=== PATIENT | female | born 1955 | race Caucasian/White ===

== ENCOUNTER 2018-10-02 12:23 | Emergency (ER) | payer BC ==
[~2018-10-02] VITALS: Ht 152.4 cm; Wt 133.8 kg
[~2018-10-02 12:23] MED LIST: CYAN10005 PO; DAPA10TA PO; DENO120V SQ; FURO-69 PO; GLIM2TAB2 PO; HYDR-2761 PO; IBUP200T77 PO; PAZO200T PO; POTA20TA4 PO; SIMV20TA3 PO; VALS1TAB22 PO
[2018-10-02 13:09] LABS: BASO % 1 % (0-3); EOS # 0.1 x10^3/uL (0.0-0.7); EOS % 1 % (0-3); HEMATOCRIT 37.2 % (36.0-47.0); HEMOGLOBIN 12.9 g/dL (12.0-15.5); LYMPH # 0.9 x10^3/uL (1.0-4.8); LYMPH % 22 % (24-48); MEAN CORPUSCULAR HEMOGLOBIN 29 pg (25-35); MEAN CORPUSCULAR HGB CONC 35 g/dL (31-37); MEAN CORPUSCULAR VOLUME 85 fL (79-100); MONO # 0.3 x10^3/uL (0.0-1.1); MONO % 7 % (0-9); NEUT % 69 % (31-73); PLATELET COUNT 181 x10^3/uL (140-400); RED BLOOD COUNT 4.39 x10^6/uL (3.50-5.40); RED CELL DISTRIBUTION WIDTH 18.6 % (11.5-14.5); WHITE BLOOD COUNT 4.3 x10^3/uL (4.0-11.0)
[2018-10-02 13:21] LABS: CALCIUM 10.1 mg/dL (8.5-10.1); GFR 55.8; POTASSIUM 3.3 mmol/L (3.5-5.1)
[2018-10-02 13:26] LABS: ALBUMIN 3.2 g/dL (3.4-5.0); DIRECT BILIRUBIN 0.1 mg/dL (0.0-0.2); TOTAL BILIRUBIN 0.6 mg/dL (0.2-1.0); TOTAL PROTEIN 7.4 g/dL (6.4-8.2)
[2018-10-02] MEDS ORDERED: IPRATRPIUM/ALBUTEROL 0.5/2.5MG 3 ML NEBU. NEB ONE (13:30)
[2018-10-02] MEDS ORDERED: IOHEXOL 300 MG/ML 100ML VIAL. IV ONE (13:45)
[2018-10-02] MEDS ORDERED: CONTRAST GIVEN. MC PRN (13:45)
--- NOTE | 2018-10-02 13:58 | RAD ---
Examination: CHEST AP ONLY History: SOA,WEAKNESS X1 WEEK, Comparison/Correlation: None Findings: Portable upright frontal view chest was obtained. Heart size is borderline but this is probably technique related. No infiltrate, pleural effusion, significant pulmonary vasculature congestion, or pneumothorax. Impression: No focal infiltrate. Electronically signed by: Amanuel Rene MD (10/02/2018 1:18 PM) [id number]
[2018-10-02] MEDS ORDERED: fentaNYL PF VIAL 100 MCG/2 ML VIAL IV PRN (14:15)
--- NOTE | 2018-10-02 14:41 | EKG ---
[facility] [address] [place] [address] Test Date: 2018-10-02 Test Time: 14:11:40 Pat Name: DRU GONZALEZ Department: Room: Gender: F Director Law Enforcement: : 1955 Requested By: COLLEEN FLOYD Order Number: [id number] Reading MD: Crow Burton Measurements Intervals [place] Rate: 69 P: 51 [place]: 190 QRS: -13 QRSD: 98 T: 18 QT: 400 QTc: 435 Interpretive Statements SINUS RHYTHM LEFTWARD AXIS NONSPECIFIC ST-T WAVE CHANGES Electronically Signed On 10-07-2018 15:19:11 FIREFIGHTER TYPE ONE by Crow Burton
--- NOTE | 2018-10-02 15:34 | PHYS DOC ---
Past Medical History Past Medical History: Other Additional Past Medical Histor: kidney ca with mets to bone Past Surgical History: Other Additional Past Surgical Histo: lt knee, rt shoulder Alcohol Use: None Drug Use: None Adult General Chief Complaint Chief Complaint: SHORTNESS OF BREATH HPI HPI 63-year-old female presenting to the emergency department today with worsening shortness of breath over the past 2 weeks. It is worse with exertion. Improved with rest. She denies any chest pain or abdominal pain. onset today. location lung. duration intermittent. Past medical history: Diabetes hypertension hyperlipidemia history of TIA and history of arthritis. History of renal cancer stage IV with metastasis to the bones. Surgical history history of appendectomy and tonsillectomy. Social history denies smoking drinking or IV drug use. Review of systems is negative for fevers chills headache neck stiffness confusion cyanosis or lethargy. She denies leg swelling. All other review of systems is negative unless otherwise noted in history of present illness. ED course: 63-year-old female presenting with worsening shortness of breath. Vitals, afebrile with normal heart rate. Blood pressure within normal limits. On examination the lungs are clear bilaterally. Work of breathing is within normal limits. Abdomen is soft and nontender. EKG obtained and reviewed by myself shows sinus rhythm with a regular rate. ST segments congruent. Not suggestive of ACS. CBC unremarkable. Chemistry panel shows mildly low potassium. LFTs are mildly elevated. Troponin negative. Lipase within normal limits. Chest x-ray is negative for acute pathology. CT angios negative for pulmonary embolism. Incidental finding with follow-up ultrasound below. Patient will follow up with PCP for this.The patient has been examined and was not found to have an emergency medical condition. The patient was then discharged home in stable condition to follow up with their primary care physician over the next 1-2 days. They were to return if their symptoms worsened or if they were concerned for any reason. They were also instructed to return to the emergency department if they were unable to get the recommended and appropriate follow-up. [id number] discharge instructions and return precautions were given. Patient's questions were answered to their satisfaction. Patient is comfortable with plan. 3. Prominent appearing right lobe of thyroid gland with probable hypodense nodule measuring 2.5 cm. Follow-up nonemergent ultrasound thyroid can be considered. Review of Systems Review of Systems SEE ABOVE. Current Medications Current Medications Current Medications Medications (Trade) Dose Ordered Sig/Jesús Start Time Stop Time Status Last Admin Dose Admin Albuterol/ Ipratropium (Duoneb) 3 ml 1X ONCE 10/02/18 13:30 10/02/18 13:31 DC 10/02/18 13:25 3 ML Fentanyl Citrate (Fentanyl 2ml Vial) 25 mcg 1X PRN PRN 10/02/18 14:15 10/02/18 14:33 25 MCG Info (CONTRAST GIVEN -- Rx MONITORING) 1 each PRN DAILY PRN 10/02/18 13:45 10/04/18 13:44 Iohexol (Omnipaque 300 Mg/ml) 90 ml 1X ONCE 10/02/18 13:45 10/02/18 13:46 DC 10/02/18 13:54 90 ML Allergies Allergies Allergies Coded Allergies Type Severity Reaction Last Updated Verified No Known Drug Allergies 10/18/13 No Physical Exam Physical Exam SEE ABOVE Constitutional: Well developed, well nourished, no acute distress, non-toxic appearance. [] HENT: Normocephalic, atraumatic, bilateral external ears normal, oropharynx moist, no oral exudates, nose normal. [] Eyes: PERRLA, EOMI, conjunctiva normal, no discharge. [] Neck: Normal range of motion, no tenderness, supple, no stridor. [] Cardiovascular:Heart rate regular rhythm, no murmur [] Lungs & Thorax: Bilateral breath sounds clear to auscultation [] Abdomen: Bowel sounds normal, soft, no tenderness, no masses, no pulsatile masses. [] Skin: Warm, dry, no erythema, no rash. [] Back: No tenderness, no CVA tenderness. [] Extremities: No tenderness, no cyanosis, no clubbing, ROM intact, no edema. [] Neurologic: Alert and oriented X 3, normal motor function, normal sensory function, no focal deficits noted. [] Psychologic: Affect normal, judgement normal, mood normal. [] Current Patient Data Vital Signs Vital Signs Date Time Temp Pulse Resp B/P (MAP) Pulse Ox O2 Delivery O2 Flow Rate FiO2 10/02/18 14:33 65 18 133/69 (90) 99 Room Air 10/02/18 12:45 97.0 97.0 Lab Values Laboratory Tests Test 10/02/18 12:58 White Blood Count 4.3 x10^3/uL (4.0-11.0) Red Blood Count 4.39 x10^6/uL (3.50-5.40) Hemoglobin 12.9 g/dL (12.0-15.5) Hematocrit 37.2 % (36.0-47.0) Mean Corpuscular Volume 85 fL (79-100) Mean Corpuscular Hemoglobin 29 pg (25-35) Mean Corpuscular Hemoglobin Concent 35 g/dL (31-37) Red Cell Distribution Width 18.6 % (11.5-14.5) H Platelet Count 181 x10^3/uL (140-400) Neutrophils (%) (Auto) 69 % (31-73) Lymphocytes (%) (Auto) 22 % (24-48) L Monocytes (%) (Auto) 7 % (0-9) Eosinophils (%) (Auto) 1 % (0-3) Basophils (%) (Auto) 1 % (0-3) Neutrophils # (Auto) 3.0 x10^3uL (1.8-7.7) Lymphocytes # (Auto) 0.9 x10^3/uL (1.0-4.8) L Monocytes # (Auto) 0.3 x10^3/uL (0.0-1.1) Eosinophils # (Auto) 0.1 x10^3/uL (0.0-0.7) Basophils # (Auto) 0.0 x10^3/uL (0.0-0.2) Sodium Level 142 mmol/L (136-145) Potassium Level 3.3 mmol/L (3.5-5.1) L Chloride Level 102 mmol/L (98-107) Carbon Dioxide Level 26 mmol/L (21-32) Anion Gap 14 (6-14) Blood Urea Nitrogen 29 mg/dL (7-20) H Creatinine 1.0 mg/dL (0.6-1.0) Estimated GFR (Cockcroft-Gault) 55.8 Glucose Level 107 mg/dL (70-99) H Calcium Level 10.1 mg/dL (8.5-10.1) Total Bilirubin 0.6 mg/dL (0.2-1.0) Direct Bilirubin 0.1 mg/dL (0.0-0.2) Aspartate Amino Transferase (AST) 156 U/L (15-37) H Alanine Aminotransferase (ALT) 299 U/L (14-59) H Alkaline Phosphatase 119 U/L (46-116) H Troponin I Quantitative < 0.017 ng/mL (0.000-0.055) GB-Kfp-[id number]-Type Natriuretic Peptide 174 pg/mL (0-124) H Total Protein 7.4 g/dL (6.4-8.2) Albumin 3.2 g/dL (3.4-5.0) L Lipase 223 U/L (73-393) Laboratory Tests 10/02/18 12:58 Laboratory Tests 10/02/18 12:58 EKG EKG [] Radiology/Procedures Radiology/Procedures [] Course & Med Decision Making Course & Med Decision Making Pertinent Labs and Imaging studies reviewed. (See chart for details) [] Dragon Disclaimer Dragon Disclaimer This electronic medical record was generated, in whole or in part, using a voice recognition dictation system. Departure Departure Impression: Primary Impression: Shortness of breath Disposition: 01 HOME, SELF-CARE Condition: STABLE Referrals: JENNIFFER BARBER DO (PCP) Patient Instructions: Shortness of Breath, Cwqw-[id number] Additional Instructions: Thank you for allowing us to participate in your care today. Return to the emergency department you have any new or worsening symptoms, or if you are concerned for any reason. Return to emergency department if you have any new or concerning symptoms including but not limited to fever, chills, nausea, vomiting, intractable pain, any new rashes, chest pain, shortness of air , uncontrolled bleeding, difficulty breathing, and/or vision loss. Follow up with your primary care physician within 1-2 days. Call your Primary Doctor tomorrow and inform them of your visit today. If you do not have a primary care provider we are happy to provide you with a list of our primary care providers contact information. This condition should be evaluated by your primary care physician and any recommended consulting services for continued management within 2 days after discharge. If at any time, you are having difficulty getting into your primary care doctor or a specialist, return to the emergency department. COLLEEN FLOYD MD Oct 02, 2018 15:34
--- NOTE | 2018-10-02 16:12 | RAD ---
Examination: CT angiography chest HISTORY: History of shortness of breath, stage IV renal cancer COMPARISON: CT chest from 06/04/2018 TECHNIQUE: Axial CT angiography images chest were performed with IV contrast. Coronal and sagittal 3-D MIP reformats are performed Exposure: One or more of the following individualized dose reduction techniques were utilized for this examination: 1. Automated exposure control 2. Adjustment of the mA and/or kV according to patient size 3. Use of iterative reconstruction technique FINDINGS: Prominent appearing right lobe of thyroid gland with probable hypodense nodule measuring 2.5 cm. The central airways are patent The heart size grossly appears unremarkable There is no evidence of filling defect identified in the main pulmonary arterial trunk and right and pulmonary duct is in the visualized lobar, segmental branches of the pulmonary arteries. The caliber of the aorta grossly appears unremarkable. Calcified granulomas identified in the left apical lung. Linear atelectasis left lung base. No evidence of pleural effusion or pneumothorax. The partially visualized liver, appears unremarkable. Calcified granulomas identified in the spleen. Moderate degenerative changes thoracic spine. IMPRESSION: 1. No evidence of pulmonary embolism. 2. Minimal atelectasis left lung base. 3. Prominent appearing right lobe of thyroid gland with probable hypodense nodule measuring 2.5 cm. Follow-up nonemergent ultrasound thyroid can be considered. Electronically signed by: José Luis Stout MD (10/02/2018 2:10 PM) [place] [id number]
[2018-10-02 16:54] VITALS: BP 139/75
== END 2018-10-02 17:14 | disposition home or self-care (01) ==
LOC: ER 12:23
DX: R06.02 Shortness of breath (principal); E11.9 Type 2 diabetes mellitus without complications; I10 Essential (primary) hypertension; E78.5 Hyperlipidemia, unspecified; M19.90 Unspecified osteoarthritis, unspecified site; Z86.73 Personal history of transient ischemic attack (TIA), and cerebral infarction without residual deficits
CPT/HCPCS: 36415; 71045; 71275; 80048; 80076; 83690; 83880; 84484; 85025; 93005; 94640; 96374; 99284; J3010; J7620; Q9967

== ENCOUNTER 2018-12-24 16:52 | Inpatient (IN) | payer BC ==
[~2018-12-24] VITALS: Ht 152.4 cm; Wt 128.2 kg
[2018-12-24 09:30] VITALS: BP 132/75
[~2018-12-24 16:52] MED LIST changes: +ONDA8TAB9 PO
--- NOTE | 2018-12-24 17:56 | PHYS DOC ---
Past Medical History Past Medical History: Other Additional Past Medical Histor: kidney ca with mets to bone Past Surgical History: Other Additional Past Surgical Histo: lt knee, rt shoulder Alcohol Use: None Drug Use: None Adult General Chief Complaint Chief Complaint: HYPOGLYCEMIA HPI HPI This is a pleasant 63-year-old female presenting to the emergency department after being found down by family. She was found to be hypoglycemic with a blood sugar of 16 in the field. IV was started by paramedics and they gave an amp of D50 in the field which improved her mentation. She is now alert and oriented arriving by EMS. She does not take insulin but does take glipizide and Farxiga. Currently the patient reports feeling cold but otherwise is asymptomatic. This review of systems is negative for chest pain shortness of breath abdominal pain nausea vomiting. All other review of systems is negative unless otherwise noted in history of present illness. ED course: 63-year-old female presented to the emergency department with a hypoglycemic episode which was ameliorated by EMS giving IV dextrose. On arrival she is asymptomatic. We will feed the patient here in the emergency department and dropped blood work. We will plan to admit the patient to the hospital. The patient was signed out at [address] Briggs with plans to follow- up on blood work and reexamine the patient with plan of likely admission. Review of Systems Review of Systems SEE ABOVE. Allergies Allergies Allergies Coded Allergies Type Severity Reaction Last Updated Verified No Known Drug Allergies 10/18/13 No Physical Exam Physical Exam SEE ABOVE Constitutional: Well developed, well nourished, no acute distress, non-toxic appearance. [] HENT: Normocephalic, atraumatic, bilateral external ears normal, oropharynx moist, no oral exudates, nose normal. [] Eyes: PERRLA, EOMI, conjunctiva normal, no discharge. [] Neck: Normal range of motion, no tenderness, supple, no stridor. [] Cardiovascular:Heart rate regular rhythm, no murmur [] Lungs & Thorax: Bilateral breath sounds clear to auscultation [] Abdomen: Bowel sounds normal, soft, no tenderness, no masses, no pulsatile masses. [] Skin: Warm, dry, no erythema, no rash. [] Back: No tenderness, no CVA tenderness. [] Extremities: No tenderness, no cyanosis, no clubbing, ROM intact, no edema. [] Neurologic: Mental status: Awake oriented and alert x3 Cranial nerves: Extraocular movements intact, eyebrows nathaly bilaterally, smile symmetric, uvula elevation nl, shoulder shrug intact bilaterally, tongue protrusion normal DTRs: 2+ Sensation: equal and normal in all extremities Strength: 5/5 in upper and lower extremities bilaterally Psychologic: Affect normal, judgement normal, mood normal. [] Current Patient Data Lab Values Laboratory Tests Test 12/24/18 17:02 Glucose (Fingerstick) 63 mg/dL (70-99) L EKG EKG [] Radiology/Procedures Radiology/Procedures [] Course & Med Decision Making Course & Med Decision Making Pertinent Labs and Imaging studies reviewed. (See chart for details) [] Dragon Disclaimer Dragon Disclaimer This electronic medical record was generated, in whole or in part, using a voice recognition dictation system. Departure Departure Referrals: JENNIFFER BARBER DO (PCP) COLLEEN FLOYD MD Dec 24, 2018 17:56
[2018-12-24 18:08] LABS: BASO % 0 % (0-3); EOS % 0 % (0-3); HEMATOCRIT 37.1 % (36.0-47.0); HEMOGLOBIN 12.2 g/dL (12.0-15.5); LYMPH # 0.3 x10^3/uL (1.0-4.8); LYMPH % 4 % (24-48); MEAN CORPUSCULAR HEMOGLOBIN 32 pg (25-35); MEAN CORPUSCULAR HGB CONC 33 g/dL (31-37); MEAN CORPUSCULAR VOLUME 97 fL (79-100); MONO # 0.3 x10^3/uL (0.0-1.1); MONO % 5 % (0-9); NEUT # 5.3 x10^3uL (1.8-7.7); NEUT % 90 % (31-73); PLATELET COUNT 176 x10^3/uL (140-400); RED BLOOD COUNT 3.82 x10^6/uL (3.50-5.40); RED CELL DISTRIBUTION WIDTH 19.4 % (11.5-14.5); WHITE BLOOD COUNT 5.9 x10^3/uL (4.0-11.0)
[2018-12-24 18:20] LABS: CALCIUM 9.3 mg/dL (8.5-10.1); CREATININE 0.7 mg/dL (0.6-1.0); GFR 84.2; POTASSIUM 3.4 mmol/L (3.5-5.1)
[2018-12-24 18:21] LABS: ALBUMIN 3.3 g/dL (3.4-5.0); DIRECT BILIRUBIN 0.2 mg/dL (0.0-0.2); TOTAL BILIRUBIN 0.6 mg/dL (0.2-1.0); TOTAL PROTEIN 7.4 g/dL (6.4-8.2)
[2018-12-24 18:26] LABS: BILIRUBIN,URINE NEGATIVE (NEG); CLARITY,URINE CLEAR; COLOR,URINE YELLOW; NITRITE,URINE NEGATIVE (NEG); PROTEIN,URINE NEGATIVE (NEG-TRACE); UROBILINOGEN,URINE 0.2 mg/dL (0.2 mg/dL)
[2018-12-24 18:34] LABS: BACTERIA,URINE FEW /HPF (0-FEW); RBC,URINE OCC /HPF (0-2); SQUAMOUS EPITHELIAL CELL,UR MOD /LPF
[2018-12-24 18:36] LABS: HYALINE CASTS, URINE FEW /HPF
[2018-12-24] MEDS ORDERED: DEXTROSE 50% 25 GM / 50ML DISP.SYRIN. IV ONE ×3 (19:11→23:00)
[2018-12-24] MEDS ORDERED: IV DEXTROSE 5 %-0.45 % NACL 1,000 ML IV ONE (19:15)
[2018-12-24] MEDS ORDERED: cefTRIAXone IV Push 1 GM VIAL. IVP ONE (19:30)
[2018-12-24 19:44] LABS: % MONOS 5 % (0-10); % SEGS 94 % (35-66)
[2018-12-24 19:45] LABS: % LYMPHS 1 % (24-48); ANISOCYTOSIS SLIGHT; PLT ESTIMATE ADEQUATE (ADEQUATE)
--- NOTE | 2018-12-24 19:50 | RAD ---
CT head, maxillofacial region, and cervical spine without contrast History: fall, facial pain, neck pain, head injury Technique: Noncontrast CT imaging was performed of the head, maxillofacial region, and cervical spine. Multiplanar reconstruction images are submitted. Exposure: One or more of the following individualized dose reduction techniques were utilized for this examination: 1. Automated exposure control 2. Adjustment of the mA and/or kV according to patient size 3. Use of iterative reconstruction technique. Head CT Comparison: None Findings: No acute extra-axial or parenchymal hemorrhage is identified. There is no significant intra-axial mass effect, midline shift, or extra-axial fluid collection. The santos-white differentiation of the major vascular territories is preserved. Ventricular size is within normal limits. There is mild prominence of bifrontal subarachnoid spaces. There is hyperostosis frontalis. The mastoid air cells and the visualized paranasal sinuses are aerated. There is no significant focal calvarial abnormality. Impression: 1. No acute intracranial abnormality is identified. 2. There is mild supratentorial involutional change greater of the frontal lobes. Cervical spine CT Comparison: None Findings: No acute cervical spine fracture is identified. Vertebral body stature and AP alignment are within normal limits. Atlanto-axial distance is within normal limits. There is appropriate alignment of lateral masses of C1 relative to C2. Occipital condylar-C1 relationship is maintained. There is miub-az-mhqjupts degenerative disc disease C5-6, mild spondylosis at this level. There is multilevel cervical facet degenerative change. There is neural foramina compromise, moderate narrowing of the right C3-4 and C4-5 neural foramina. Thyroid gland is somewhat enlarged greater on the right, also some calcifications greater on the right. Impression: 1. No acute cervical spine fracture is identified. 2. There is multilevel cervical facet degenerative change, contributes to narrowing of the right C3-4 and C4-5 neural foramina. There is rozj-cx-jfsfqddz degenerative disc disease and mild spondylosis C5-6. 3. Thyroid gland is somewhat enlarged with calcifications, likely nodules present. Thyroid gland has been previously evaluated by ultrasound. Maxillofacial CT: FINDINGS: There is tiny air-fluid level right maxillary sinus. No acute maxillofacial fracture is identified. Globes are symmetric in appearance. IMPRESSION: 1. No acute maxillofacial fracture is identified. There is tiny air-fluid level in the right maxillary sinus. Electronically signed by: Bryant Wilburn MD (12/24/2018 7:48 PM) [facility]
--- NOTE | 2018-12-24 19:50 | RAD ---
CT head, maxillofacial region, and cervical spine without contrast History: fall, facial pain, neck pain, head injury Technique: Noncontrast CT imaging was performed of the head, maxillofacial region, and cervical spine. Multiplanar reconstruction images are submitted. Exposure: One or more of the following individualized dose reduction techniques were utilized for this examination: 1. Automated exposure control 2. Adjustment of the mA and/or kV according to patient size 3. Use of iterative reconstruction technique. Head CT Comparison: None Findings: No acute extra-axial or parenchymal hemorrhage is identified. There is no significant intra-axial mass effect, midline shift, or extra-axial fluid collection. The santos-white differentiation of the major vascular territories is preserved. Ventricular size is within normal limits. There is mild prominence of bifrontal subarachnoid spaces. There is hyperostosis frontalis. The mastoid air cells and the visualized paranasal sinuses are aerated. There is no significant focal calvarial abnormality. Impression: 1. No acute intracranial abnormality is identified. 2. There is mild supratentorial involutional change greater of the frontal lobes. Cervical spine CT Comparison: None Findings: No acute cervical spine fracture is identified. Vertebral body stature and AP alignment are within normal limits. Atlanto-axial distance is within normal limits. There is appropriate alignment of lateral masses of C1 relative to C2. Occipital condylar-C1 relationship is maintained. There is kkxf-tp-uvqquxyp degenerative disc disease C5-6, mild spondylosis at this level. There is multilevel cervical facet degenerative change. There is neural foramina compromise, moderate narrowing of the right C3-4 and C4-5 neural foramina. Thyroid gland is somewhat enlarged greater on the right, also some calcifications greater on the right. Impression: 1. No acute cervical spine fracture is identified. 2. There is multilevel cervical facet degenerative change, contributes to narrowing of the right C3-4 and C4-5 neural foramina. There is saix-gs-rxuslgib degenerative disc disease and mild spondylosis C5-6. 3. Thyroid gland is somewhat enlarged with calcifications, likely nodules present. Thyroid gland has been previously evaluated by ultrasound. Maxillofacial CT: FINDINGS: There is tiny air-fluid level right maxillary sinus. No acute maxillofacial fracture is identified. Globes are symmetric in appearance. IMPRESSION: 1. No acute maxillofacial fracture is identified. There is tiny air-fluid level in the right maxillary sinus. Electronically signed by: Bryant Wilburn MD (12/24/2018 7:48 PM) [facility]
[2018-12-24] MEDS ORDERED: ONDANSETRON PF 4 MG/2 ML VIAL. IV PRN (20:15)
--- NOTE | 2018-12-24 21:30 | NUR ---
The patient, DRU GONZALEZ, 63 y/o, F admitted by AGUILA BALDERAS MD, was given written information regarding hospital policies, unit procedures and contact persons. Valuables were checked and LEFT WITH PATIENT IN PATIENTS ROOM.
[2018-12-24] MEDS ORDERED: NYST15PO9 TP (22:26)
[2018-12-24] MEDS: NYSTATIN TOPICAL POWDER 15GM BOTTLE. TP SCH (22:30)
[2018-12-24] MEDS ORDERED: IBUPROFEN 200 MG TABLET. PO PRN (22:30)
[2018-12-24] MEDS: HYDROcodone/APAP 5/325MG 1 TAB TABLET PO PRN (22:31)
[2018-12-24 23:00] VITALS: BP 144/70
[2018-12-24] MEDS ORDERED: DEXTROSE 50% 25 GM / 50ML DISP.SYRIN. IV PRN (23:00)
[2018-12-25 03:00] VITALS: BP 135/77
[2018-12-25] MEDS: HYDROcodone/APAP 5/325MG 1 TAB TABLET PO PRN ×3 (03:56→21:15)
[2018-12-25 04:21] LABS: BASO % 0 % (0-3); EOS % 0 % (0-3); HEMATOCRIT 34.6 % (36.0-47.0); HEMOGLOBIN 11.6 g/dL (12.0-15.5); LYMPH # 0.5 x10^3/uL (1.0-4.8); LYMPH % 9 % (24-48); MEAN CORPUSCULAR HEMOGLOBIN 32 pg (25-35); MEAN CORPUSCULAR HGB CONC 33 g/dL (31-37); MEAN CORPUSCULAR VOLUME 97 fL (79-100); MONO # 0.4 x10^3/uL (0.0-1.1); MONO % 8 % (0-9); NEUT # 4.2 x10^3uL (1.8-7.7); NEUT % 82 % (31-73); PLATELET COUNT 186 x10^3/uL (140-400); RED BLOOD COUNT 3.59 x10^6/uL (3.50-5.40); RED CELL DISTRIBUTION WIDTH 19.6 % (11.5-14.5); WHITE BLOOD COUNT 5.1 x10^3/uL (4.0-11.0)
[2018-12-25 05:18] LABS: CALCIUM 8.9 mg/dL (8.5-10.1); CREATININE 0.8 mg/dL (0.6-1.0); GFR 72.2; POTASSIUM 3.6 mmol/L (3.5-5.1)
--- NOTE | 2018-12-25 06:26 | EKG ---
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
[2018-12-25 07:00] VITALS: BP 130/67
[2018-12-25] MEDS: NYSTATIN TOPICAL POWDER 15GM BOTTLE. TP SCH ×2 (09:35→21:14)
[2018-12-25 11:00] VITALS: BP 137/63
[2018-12-25] MEDS ORDERED: DEXTROSE 50% 25 GM / 50ML DISP.SYRIN. IV PRN (11:15)
--- NOTE | 2018-12-25 11:25 | NUR ---
SW responding to a referral regarding SNU eval. Chart reviewed. pt is from home. Rehab screen pending. SW requested for PT/OT eval and tx order to assess dc needs. Will continue to follow.
--- NOTE | 2018-12-25 11:26 | HP ---
ADMIT DATE: CHIEF COMPLAINT: Hypoglycemia. HISTORY OF PRESENT ILLNESS: The patient is a pleasant elderly female who is on glipizide for her diabetes. She presented with hypoglycemia with glucose level of 16. She also has severe rash on her buttocks. She is also quite disabled. States she lives alone, but I am not sure how she is getting along at home very well because she cannot hardly get out of bed. She initially was found down by family when this all occurred. She has now been admitted to the medical floor. Her glucose is improving, but she is quite disabled. We are going to get her to a prison and/or long-term care. PAST MEDICAL HISTORY: Renal cancer with mets to the bones. Diabetes and obesity. ALLERGIES: None. FAMILY HISTORY: Diabetes. SOCIAL HISTORY: She does not drink, smoke or take drugs. MEDICATIONS: Reviewed. She is on simvastatin, Diovan, ibuprofen, hydrocodone, Klor-Con, Lasix, Zofran, glimepiride, and nystatin. REVIEW OF SYSTEMS: GENERAL: She complains of severe weakness. SKIN: She complains of a rash on her buttocks. EYES: No blurred, double or loss of vision. NOSE AND THROAT: No history of nosebleeds, hoarseness or sore throat. HEART: No history of palpitations, chest pain or shortness of breath on exertion. LUNGS: Denies cough, hemoptysis, wheezing or shortness of breath. GASTROINTESTINAL: Denies changes in appetite, nausea, vomiting, diarrhea or constipation. GENITOURINARY: No history of frequency, urgency, hesitancy or nocturia. NEUROLOGIC: Denies history of numbness, tingling, tremor or weakness. PSYCHIATRIC: No history of panic, anxiety or depression. ENDOCRINE: No history of heat or cold intolerance, polyuria or polydipsia. EXTREMITIES: Denies muscle weakness, joint pain, pain on walking or stiffness. PHYSICAL EXAMINATION: VITAL SIGNS: Temperature is afebrile, pulse 80, respirations 20, blood pressure 130/67. GENERAL: She is alert, cooperative, pleasant, but very weak. HEART: Distant S1, S2. LUNGS: Clear. ABDOMEN: Soft, distended, obese. EXTREMITIES: 2+ edema. SKIN: She has got a large yeast rash on her buttocks and early development of decubitus ulcer stage 1. PSYCHIATRIC: She is anxious. ENDOCRINE: No thyromegaly. LABORATORY DATA: White count 6, hemoglobin 12, platelets 176. Glucose is up to 149. ASSESSMENT AND PLAN: Resolving hypoglycemia secondary to sulfonylureas in an elderly female who also is morbidly obese and has multiple comorbidities. I suspect she needs detention care. The patient has been admitted. We are holding her glipizide, we will use sliding scale insulin, consult wound care nurse. DVT prophylaxis. Full code. PT and OT, nystatin powder, p.r.n. hydrocodone, SNU evaluation. PRISCILA MENDEZ DO DR: LEONID/cong JOB#: [id number] / [id number]
[2018-12-25 15:00] VITALS: BP 137/63
[2018-12-25 19:00] VITALS: BP 116/61
[2018-12-25 23:00] VITALS: BP 124/69
[2018-12-26 02:46] VITALS: BP 128/80
[2018-12-26 04:42] LABS: BASO % 0 % (0-3); EOS % 1 % (0-3); HEMATOCRIT 34.1 % (36.0-47.0); HEMOGLOBIN 11.2 g/dL (12.0-15.5); LYMPH # 0.6 x10^3/uL (1.0-4.8); LYMPH % 16 % (24-48); MEAN CORPUSCULAR HEMOGLOBIN 32 pg (25-35); MEAN CORPUSCULAR HGB CONC 33 g/dL (31-37); MEAN CORPUSCULAR VOLUME 98 fL (79-100); MONO # 0.3 x10^3/uL (0.0-1.1); MONO % 9 % (0-9); NEUT # 2.7 x10^3uL (1.8-7.7); NEUT % 74 % (31-73); PLATELET COUNT 152 x10^3/uL (140-400); RED BLOOD COUNT 3.49 x10^6/uL (3.50-5.40); RED CELL DISTRIBUTION WIDTH 19.3 % (11.5-14.5); WHITE BLOOD COUNT 3.7 x10^3/uL (4.0-11.0)
[2018-12-26 05:15] LABS: ALBUMIN 2.3 g/dL (3.4-5.0); ALBUMIN/GLOBULIN RATIO 0.6 (1.0-1.7); CALCIUM 8.6 mg/dL (8.5-10.1); CREATININE 0.7 mg/dL (0.6-1.0); GFR 84.2; POTASSIUM 3.8 mmol/L (3.5-5.1); TOTAL BILIRUBIN 0.4 mg/dL (0.2-1.0); TOTAL PROTEIN 5.9 g/dL (6.4-8.2)
[2018-12-26 07:00] VITALS: BP 139/71
[2018-12-26] MEDS: HYDROcodone/APAP 5/325MG 1 TAB TABLET PO PRN ×2 (07:35→19:57)
[2018-12-26] MEDS ORDERED: ONDANSETRON ODT 4 MG TAB.RAPDIS. PO PRN (09:00)
[2018-12-26] MEDS ORDERED: ACETAMINOPHEN 500 MG TABLET PO PRN (09:00)
[2018-12-26] MEDS ORDERED: ONDANSETRON PF 4 MG/2 ML VIAL. IV PRN (09:00)
[2018-12-26] MEDS: NYSTATIN TOPICAL POWDER 15GM BOTTLE. TP SCH ×3 (09:21→19:57)
--- NOTE | 2018-12-26 10:42 | PDOC ---
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 but so far no luck in that Right shoulder hurts, recently diagnosed by orthopedics at with some tendinitis. Interested in having injections. Her next appointment with them is on January 15 but she would like this to be addressed while here Also relays to me missed 2 sessions of chemotherapy and requests Dr. Lewis to see her Tawana: consult Dr. Otero physiatry Consult Dr. Lewis heme oncology Turn every 2 Wound care consult for the butt cheek Lasix 40 IV now then daily for the lymphedema Consult OT for lymphedema E lites while on IV diuretic Nystatin powder increase to 3 times a day A and D ointment to the buttock Discussed with daughter and RN at bedside Vitals Vitals Vital Signs Date Time Temp Pulse Resp B/P (MAP) Pulse Ox O2 Delivery O2 Flow Rate FiO2 12/26/18 09:15 Room Air 12/26/18 07:00 97.7 88 18 139/71 (93) 99 97.7 Physical Exam General: Alert, Oriented X3, Cooperative Heart: Regular rate, Normal S1, Normal S2 Lungs: Clear Abdomen: Normal bowel sounds, Soft Extremities: No clubbing, No cyanosis, Other (+2 to +3 pitting edema) Skin: Other (red rash erythematous buttock cheek and grade 1 skin tear on the middle) Labs LABS Laboratory Tests Test 12/25/18 11:53 12/25/18 16:35 12/25/18 20:39 12/26/18 04:15 Glucose (Fingerstick) 135 mg/dL (70-99) 137 mg/dL (70-99) 128 mg/dL (70-99) White Blood Count 3.7 x10^3/uL (4.0-11.0) Red Blood Count 3.49 x10^6/uL (3.50-5.40) Hemoglobin 11.2 g/dL (12.0-15.5) Hematocrit 34.1 % (36.0-47.0) Mean Corpuscular Volume 98 fL (79-100) Mean Corpuscular Hemoglobin 32 pg (25-35) Mean Corpuscular Hemoglobin Concent 33 g/dL (31-37) Red Cell Distribution Width 19.3 % (11.5-14.5) Platelet Count 152 x10^3/uL (140-400) Neutrophils (%) (Auto) 74 % (31-73) Lymphocytes (%) (Auto) 16 % (24-48) Monocytes (%) (Auto) 9 % (0-9) Eosinophils (%) (Auto) 1 % (0-3) Basophils (%) (Auto) 0 % (0-3) Neutrophils # (Auto) 2.7 x10^3uL (1.8-7.7) Lymphocytes # (Auto) 0.6 x10^3/uL (1.0-4.8) Monocytes # (Auto) 0.3 x10^3/uL (0.0-1.1) Eosinophils # (Auto) 0.0 x10^3/uL (0.0-0.7) Basophils # (Auto) 0.0 x10^3/uL (0.0-0.2) Sodium Level 141 mmol/L (136-145) Potassium Level 3.8 mmol/L (3.5-5.1) Chloride Level 106 mmol/L (98-107) Carbon Dioxide Level 30 mmol/L (21-32) Anion Gap 5 (6-14) Blood Urea Nitrogen 20 mg/dL (7-20) Creatinine 0.7 mg/dL (0.6-1.0) Estimated GFR (Cockcroft-Gault) 84.2 BUN/Creatinine Ratio 29 (6-20) Glucose Level 114 mg/dL (70-99) Calcium Level 8.6 mg/dL (8.5-10.1) Total Bilirubin 0.4 mg/dL (0.2-1.0) Aspartate Amino Transf (AST/SGOT) 20 U/L (15-37) Alanine Aminotransferase (ALT/SGPT) 19 U/L (14-59) Alkaline Phosphatase 41 U/L (46-116) Total Protein 5.9 g/dL (6.4-8.2) Albumin 2.3 g/dL (3.4-5.0) Albumin/Globulin Ratio 0.6 (1.0-1.7) Test 12/26/18 07:18 Glucose (Fingerstick) 101 mg/dL (70-99) Review of Systems Review of Systems Weak, right shoulder hurts, left knee hurts, leg hurts, Assessment and Plan Assessmemt and Plan Problems Medical Problems: (1) Hypoglycemia Status: Acute Comment Review of Relevant I have reviewed the following items tanya (where applicable) has been applied. Labs Laboratory Tests Test 12/24/18 17:02 12/24/18 17:45 12/24/18 19:10 12/24/18 20:14 Glucose (Fingerstick) 63 mg/dL (70-99) 34 mg/dL (70-99) 61 mg/dL (70-99) White Blood Count 5.9 x10^3/uL (4.0-11.0) Red Blood Count 3.82 x10^6/uL (3.50-5.40) Hemoglobin 12.2 g/dL (12.0-15.5) Hematocrit 37.1 % (36.0-47.0) Mean Corpuscular Volume 97 fL (79-100) Mean Corpuscular Hemoglobin 32 pg (25-35) Mean Corpuscular Hemoglobin Concent 33 g/dL (31-37) Red Cell Distribution Width 19.4 % (11.5-14.5) Platelet Count 176 x10^3/uL (140-400) Neutrophils (%) (Auto) 90 % (31-73) Lymphocytes (%) (Auto) 4 % (24-48) Monocytes (%) (Auto) 5 % (0-9) Eosinophils (%) (Auto) 0 % (0-3) Basophils (%) (Auto) 0 % (0-3) Neutrophils # (Auto) 5.3 x10^3uL (1.8-7.7) Lymphocytes # (Auto) 0.3 x10^3/uL (1.0-4.8) Monocytes # (Auto) 0.3 x10^3/uL (0.0-1.1) Eosinophils # (Auto) 0.0 x10^3/uL (0.0-0.7) Basophils # (Auto) 0.0 x10^3/uL (0.0-0.2) Segmented Neutrophils % 94 % (35-66) Lymphocytes % 1 % (24-48) Monocytes % 5 % (0-10) Metamyelocytes % % (0-0) Platelet Estimate Adequate (ADEQUATE) Anisocytosis Slight Urine Collection Type Void Urine Color Yellow Urine Clarity Clear Urine pH 5.0 Urine Specific Snyder 1.020 Urine Protein Negative mg/dL (NEG-TRACE) Urine Glucose (UA) 500 mg/dL (NEG) Urine Ketones (Stick) Negative mg/dL (NEG) Urine Blood Moderate (NEG) Urine Nitrite Negative (NEG) Urine Bilirubin Negative (NEG) Urine Urobilinogen Dipstick 0.2 mg/dL (0.2 mg/dL) Urine Leukocyte Esterase Moderate (NEG) Urine RBC Occ /HPF (0-2) Urine WBC 1-4 /HPF (0-4) Urine Squamous Epithelial Cells Mod /LPF Urine Bacteria Few /HPF (0-FEW) Urine Cellular Casts Few /HPF Urine Hyaline Casts Few /HPF Urine Mucus Marked /LPF Sodium Level 140 mmol/L (136-145) Potassium Level 3.4 mmol/L (3.5-5.1) Chloride Level 101 mmol/L (98-107) Carbon Dioxide Level 29 mmol/L (21-32) Anion Gap 10 (6-14) Blood Urea Nitrogen 20 mg/dL (7-20) Creatinine 0.7 mg/dL (0.6-1.0) Estimated GFR (Cockcroft-Gault) 84.2 Glucose Level 57 mg/dL (70-99) Calcium Level 9.3 mg/dL (8.5-10.1) Total Bilirubin 0.6 mg/dL (0.2-1.0) Direct Bilirubin 0.2 mg/dL (0.0-0.2) Aspartate Amino Transf (AST/SGOT) 29 U/L (15-37) Alanine Aminotransferase (ALT/SGPT) 24 U/L (14-59) Alkaline Phosphatase 52 U/L (46-116) Troponin I Quantitative < 0.017 ng/mL (0.000-0.055) Total Protein 7.4 g/dL (6.4-8.2) Albumin 3.3 g/dL (3.4-5.0) Lipase 191 U/L (73-393) Test 12/24/18 20:38 12/24/18 21:27 12/24/18 21:46 12/24/18 23:55 Glucose (Fingerstick) 62 mg/dL (70-99) 53 mg/dL (70-99) 129 mg/dL (70-99) 83 mg/dL (70-99) Test 12/25/18 02:02 12/25/18 03:40 12/25/18 03:50 12/25/18 04:20 Glucose (Fingerstick) 92 mg/dL (70-99) 65 mg/dL (70-99) 146 mg/dL (70-99) White Blood Count 5.1 x10^3/uL (4.0-11.0) Red Blood Count 3.59 x10^6/uL (3.50-5.40) Hemoglobin 11.6 g/dL (12.0-15.5) Hematocrit 34.6 % (36.0-47.0) Mean Corpuscular Volume 97 fL (79-100) Mean Corpuscular Hemoglobin 32 pg (25-35) Mean Corpuscular Hemoglobin Concent 33 g/dL (31-37) Red Cell Distribution Width 19.6 % (11.5-14.5) Platelet Count 186 x10^3/uL (140-400) Neutrophils (%) (Auto) 82 % (31-73) Lymphocytes (%) (Auto) 9 % (24-48) Monocytes (%) (Auto) 8 % (0-9) Eosinophils (%) (Auto) 0 % (0-3) Basophils (%) (Auto) 0 % (0-3) Neutrophils # (Auto) 4.2 x10^3uL (1.8-7.7) Lymphocytes # (Auto) 0.5 x10^3/uL (1.0-4.8) Monocytes # (Auto) 0.4 x10^3/uL (0.0-1.1) Eosinophils # (Auto) 0.0 x10^3/uL (0.0-0.7) Basophils # (Auto) 0.0 x10^3/uL (0.0-0.2) Sodium Level 139 mmol/L (136-145) Potassium Level 3.6 mmol/L (3.5-5.1) Chloride Level 102 mmol/L (98-107) Carbon Dioxide Level 28 mmol/L (21-32) Anion Gap 9 (6-14) Blood Urea Nitrogen 17 mg/dL (7-20) Creatinine 0.8 mg/dL (0.6-1.0) Estimated GFR (Cockcroft-Gault) 72.2 Glucose Level 76 mg/dL (70-99) Calcium Level 8.9 mg/dL (8.5-10.1) Test 12/25/18 05:46 12/25/18 08:05 12/25/18 10:13 12/25/18 11:53 Glucose (Fingerstick) 110 mg/dL (70-99) 103 mg/dL (70-99) 149 mg/dL (70-99) 135 mg/dL (70-99) Test 12/25/18 16:35 12/25/18 20:39 12/26/18 04:15 12/26/18 07:18 Glucose (Fingerstick) 137 mg/dL (70-99) 128 mg/dL (70-99) 101 mg/dL (70-99) White Blood Count 3.7 x10^3/uL (4.0-11.0) Red Blood Count 3.49 x10^6/uL (3.50-5.40) Hemoglobin 11.2 g/dL (12.0-15.5) Hematocrit 34.1 % (36.0-47.0) Mean Corpuscular Volume 98 fL (79-100) Mean Corpuscular Hemoglobin 32 pg (25-35) Mean Corpuscular Hemoglobin Concent 33 g/dL (31-37) Red Cell Distribution Width 19.3 % (11.5-14.5) Platelet Count 152 x10^3/uL (140-400) Neutrophils (%) (Auto) 74 % (31-73) Lymphocytes (%) (Auto) 16 % (24-48) Monocytes (%) (Auto) 9 % (0-9) Eosinophils (%) (Auto) 1 % (0-3) Basophils (%) (Auto) 0 % (0-3) Neutrophils # (Auto) 2.7 x10^3uL (1.8-7.7) Lymphocytes # (Auto) 0.6 x10^3/uL (1.0-4.8) Monocytes # (Auto) 0.3 x10^3/uL (0.0-1.1) Eosinophils # (Auto) 0.0 x10^3/uL (0.0-0.7) Basophils # (Auto) 0.0 x10^3/uL (0.0-0.2) Sodium Level 141 mmol/L (136-145) Potassium Level 3.8 mmol/L (3.5-5.1) Chloride Level 106 mmol/L (98-107) Carbon Dioxide Level 30 mmol/L (21-32) Anion Gap 5 (6-14) Blood Urea Nitrogen 20 mg/dL (7-20) Creatinine 0.7 mg/dL (0.6-1.0) Estimated GFR (Cockcroft-Gault) 84.2 BUN/Creatinine Ratio 29 (6-20) Glucose Level 114 mg/dL (70-99) Calcium Level 8.6 mg/dL (8.5-10.1) Total Bilirubin 0.4 mg/dL (0.2-1.0) Aspartate Amino Transf (AST/SGOT) 20 U/L (15-37) Alanine Aminotransferase (ALT/SGPT) 19 U/L (14-59) Alkaline Phosphatase 41 U/L (46-116) Total Protein 5.9 g/dL (6.4-8.2) Albumin 2.3 g/dL (3.4-5.0) Albumin/Globulin Ratio 0.6 (1.0-1.7) Laboratory Tests Test 12/25/18 11:53 12/25/18 16:35 12/25/18 20:39 12/26/18 04:15 Glucose (Fingerstick) 135 mg/dL (70-99) 137 mg/dL (70-99) 128 mg/dL (70-99) White Blood Count 3.7 x10^3/uL (4.0-11.0) Red Blood Count 3.49 x10^6/uL (3.50-5.40) Hemoglobin 11.2 g/dL (12.0-15.5) Hematocrit 34.1 % (36.0-47.0) Mean Corpuscular Volume 98 fL (79-100) Mean Corpuscular Hemoglobin 32 pg (25-35) Mean Corpuscular Hemoglobin Concent 33 g/dL (31-37) Red Cell Distribution Width 19.3 % (11.5-14.5) Platelet Count 152 x10^3/uL (140-400) Neutrophils (%) (Auto) 74 % (31-73) Lymphocytes (%) (Auto) 16 % (24-48) Monocytes (%) (Auto) 9 % (0-9) Eosinophils (%) (Auto) 1 % (0-3) Basophils (%) (Auto) 0 % (0-3) Neutrophils # (Auto) 2.7 x10^3uL (1.8-7.7) Lymphocytes # (Auto) 0.6 x10^3/uL (1.0-4.8) Monocytes # (Auto) 0.3 x10^3/uL (0.0-1.1) Eosinophils # (Auto) 0.0 x10^3/uL (0.0-0.7) Basophils # (Auto) 0.0 x10^3/uL (0.0-0.2) Sodium Level 141 mmol/L (136-145) Potassium Level 3.8 mmol/L (3.5-5.1) Chloride Level 106 mmol/L (98-107) Carbon Dioxide Level 30 mmol/L (21-32) Anion Gap 5 (6-14) Blood Urea Nitrogen 20 mg/dL (7-20) Creatinine 0.7 mg/dL (0.6-1.0) Estimated GFR (Cockcroft-Gault) 84.2 BUN/Creatinine Ratio 29 (6-20) Glucose Level 114 mg/dL (70-99) Calcium Level 8.6 mg/dL (8.5-10.1) Total Bilirubin 0.4 mg/dL (0.2-1.0) Aspartate Amino Transf (AST/SGOT) 20 U/L (15-37) Alanine Aminotransferase (ALT/SGPT) 19 U/L (14-59) Alkaline Phosphatase 41 U/L (46-116) Total Protein 5.9 g/dL (6.4-8.2) Albumin 2.3 g/dL (3.4-5.0) Albumin/Globulin Ratio 0.6 (1.0-1.7) Test 12/26/18 07:18 Glucose (Fingerstick) 101 mg/dL (70-99) Medications Current Medications Dextrose (Dextrose 50%-Water Syringe) 25 gm STK-MED ONCE IV ; Start 12/24/18 at 19:11; Stop 12/24/18 at 19:12; Status DC Dextrose (Dextrose 50%-Water Syringe) 25 gm 1X ONCE IV Last administered on at 19:18; Start 12/24/18 at 19:15; Stop 12/24/18 at 19:16; Status DC Dextrose/Sodium Chloride 1,000 ml @ 75 mls/hr 1X ONCE IV Last administered on 12/24/18at 19:15; Start 12/24/18 at 19:15; Stop 12/25/18 at 08:34; Status DC Ceftriaxone Sodium (Rocephin) 1 gm 1X ONCE IVP Last administered on 12/24/18at 19:48; Start 12/24/18 at 19:30; Stop 12/24/18 at 19:31; Status DC Ondansetron HCl (Zofran) 4 mg PRN Q8HRS PRN IV NAUSEA/VOMITING; Start 12/24/18 at 20:15; Stop 12/25/18 at 20:14; Status DC Acetaminophen/ Hydrocodone Bitart (Lortab 5/325) 1 tab PRN Q4HRS PRN PO PAIN Last administered on 12/26/18at 07:35; Start 12/24/18 at 22:30 Ibuprofen (Motrin) 200 mg PRN Q6HRS PRN PO INFLAMMATION Last administered on at 09:25; Start 12/24/18 at 22:30 Nystatin (Nystop) 1 enid BID TP Last administered on 12/26/18 09:21; Start at 22:30 Dextrose (Dextrose 50%-Water Syringe) 25 gm 1X ONCE IV Last administered on at 22:52; Start 12/24/18 at 23:00; Stop 12/24/18 at 23:01; Status DC Dextrose (Dextrose 50%-Water Syringe) 12.5 gm PRN Q15MIN PRN IV SEE COMMENTS Last administered on 12/25/18at 03:55; Start 12/24/18 at 23:00; Stop 12/25/18 at 17:09; Status DC Dextrose (Dextrose 50%-Water Syringe) 12.5 gm PRN Q15MIN PRN IV SEE COMMENTS; Start 12/25/18 at 11:15 Levofloxacin/ Dextrose 100 ml @ 100 mls/hr Q24H IV Last administered on at 12:03; Start 12/25/18 at 12:00 Ondansetron HCl (Zofran) 4 mg PRN Q6HRS PRN IV NAUSEA/VOMITING; Start 12/26/18 at 09:00 Ondansetron HCl (Zofran Odt) 4 mg PRN Q6HRS PRN PO NAUSEA/VOMITING; Start 12/26 at 09:00 Acetaminophen (Tylenol) 500 mg PRN Q6HRS PRN PO MILD PAIN / TEMP; Start at 09:00 Active Scripts Active Reported Nystatin 15 Gm Powder 1 [place] TP BID Zofran (Ondansetron Hcl) 8 Mg Tablet 8 Mg PO BID PRN Xgeva (Denosumab) 120 Mg/1.7 Ml Vial 120 Mg SQ MONTHLY Votrient (Pazopanib Hcl) 200 Mg Tablet 200 Mg PO TID Hydrocodone-Apap 5-325 (Hydrocodone Bit/Acetaminophen) 1 Each Tablet 1 Tab PO PRN Q4HRS PRN Farxiga (Dapagliflozin Propanediol) 10 Mg Tablet 10 Mg PO DAILY Glimepiride 2 Mg Tablet 1 Tab PO DAILY Ibuprofen 200 Mg Tablet 200 Mg PO PRN Simvastatin 20 Mg Tablet 20 Mg PO DAILY Klor-Con M20 (Potassium Chloride) 20 Meq Tab.er.prt 20 Meq PO DAILY Lasix (Furosemide) 20 Mg Tablet 20 Mg PO DAILY Diovan Hct 320-25 Mg Tablet (Valsartan/Hydrochlorothiazide) 1 Each Tablet 1 Each PO DAILY Vitals/I & O Vital Sign - Last 24 Hours 12/25/18 12/25/18 12/25/18 12/25/18 11:00 12:03 13:03 15:00 Temp 98.3 98.3 98.3 98.3 Pulse 95 95 Resp 18 20 20 18 B/P (MAP) 137/63 (87) 137/63 (87) Pulse Ox 92 92 92 O2 Delivery Room Air Room Air Room Air 12/25/18 12/25/18 12/25/18 12/25/18 19:00 20:00 21:15 22:15 Temp 98.3 98.3 Pulse 92 Resp 16 B/P (MAP) 116/61 (79) Pulse Ox 95 92 92 O2 Delivery Room Air Room Air Room Air 12/25/18 12/26/18 12/26/18 12/26/18 23:00 02:46 07:00 07:35 Temp 98.1 97.7 97.7 98.1 97.7 97.7 Pulse 98 79 88 Resp 16 16 18 B/P (MAP) 124/69 (87) 128/80 (96) 139/71 (93) Pulse Ox 97 97 99 O2 Delivery Room Air Room Air Room Air Room Air 12/26/18 12/26/18 08:00 09:15 O2 Delivery Room Air Room Air Intake and Output 12/25/18 12/25/18 12/26/18 15:00 23:00 07:00 Intake Total 120 ml Output Total 0 ml Balance 0 ml 120 ml ELENA KAPADIA MD Dec 26, 2018 10:41
[2018-12-26] MEDS ORDERED: VITS A & D/LANOLIN TOPICAL OINTMENT 56GM TUBE. TP PRN (10:45)
[2018-12-26 11:00] VITALS: BP 136/57
[2018-12-26] MEDS ORDERED: methylPREDNISolone ACETATE 40 MG/ML VIAL. ONE ×2 (11:00)
[2018-12-26] MEDS ORDERED: BUPIVACAINE MPF 0.25% 10 ML VIAL. ONE (11:00)
[2018-12-26] MEDS ORDERED: FUROSEMIDE 40 MG/4 ML VIAL. IVP ONE (11:30)
[2018-12-26] MEDS ORDERED: BUPIVACAINE MPF 0.25% 10 ML VIAL. IJ ONE (13:00)
[2018-12-26] MEDS ORDERED: methylPREDNISolone ACETATE 40 MG/ML VIAL. IM ONE ×2 (13:00)
[2018-12-26 15:00] VITALS: BP 118/65
[2018-12-26 19:00] VITALS: BP 137/62
[2018-12-26] MEDS: DICLOFENAC SODIUM 1% TOPICAL GEL 100GM TUBE. TP SCH (19:58)
--- NOTE | 2018-12-26 22:41 | CONS ---
DATE OF CONSULTATION: 12/26/2018 ATTENDING PHYSICIAN: Dr. Florez. The patient was seen at the request of Dr. Leiva for rehab evaluation. HISTORY OF PRESENT ILLNESS: This is a 63-year-old right-handed female, with known diabetes mellitus, admitted with hypoglycemia with glucose level 16, also severe rash on her buttocks. The patient lives alone and gets around using a roller walker or sometimes uses electric scooter. She was admitted through the Emergency Room with hypoglycemia of glucose of 16. The patient with renal cell carcinoma with metastasis to bone and also tendinitis of right shoulder, diabetes mellitus, obesity, not known allergic to any medication, also with known hyperlipidemia, hypertension. The patient also admits tingling and numbness in both hands, right more than left side and she was diagnosed as having carpal tunnel syndrome about 10 years ago. The patient had used braces in the past, but as she lost weight, the brace does not fit properly. The patient had CT scan of the head and cervical spine, which revealed degenerative joint disease and degenerative disk disease to some extent. She denies any neck pain. CT scan of the brain and maxillofacial CT scan failed to reveal any acute abnormalities. PHYSICAL EXAMINATION: Today revealed a middle-aged female. She is alert, oriented to time, place, person and circumstance and follows commands appropriately, moves all 4 extremities voluntarily where she had 4/5 to 4+/5 grade muscle strength and deep tendon reflexes are decreased in the upper extremities and her ankles, absent at both knees. She had tenderness to palpation over anterior aspect of right shoulder. The patient had negative Tinel sign over median nerve at the anterior aspect of the wrist and over ulnar nerve at the wrist and elbow, and negative Phalen sign at both wrists. She had decreased touch and pinprick sensation over median nerve distribution in both hands when compared to ulnar nerve distribution. She had crepitus on range of motion of both knee joints with knee joint effusion and she had clinical evidence of chronic venous insufficiency of both feet and legs with discoloration of the skin and significant edema of her feet and legs. The patient requires help with bed mobility and transfers. I have not tested her ambulation skills at this time, but she walked with roller walker with physical therapy. She apparently had stairs to manage, but usually gets around satisfactorily without actually climbing the stairs as she had stairs going down to the basement and she drives around and no steps to manage in the living area. ASSESSMENT: A middle-aged female with morbid obesity with diabetes mellitus with painful degenerative joint disease of her knees and also chronic right shoulder tendinitis and the patient with diabetes mellitus with peripheral neuropathy, chronic lower extremity venous insufficiency and renal cell carcinoma with metastasis to bones, hypertension, hyperlipidemia. RECOMMENDATIONS: To proceed with injecting her knees to help ease her pain, to also consider injecting her right shoulder if the pain persists, to consider nerve conduction studies on outpatient basis, to rule out carpal tunnel syndrome versus peripheral neuropathy causing her hand numbness. Dr. Leiva, I appreciate asking me to participate in the care of this interesting patient. I will be glad to follow her with you. MICHELLE TRUONG MD DR: TASHA/cong JOB#: [id number] / [id number]
--- NOTE | 2018-12-26 22:51 | CONS ---
DATE OF CONSULTATION: Dr. Leiva, I appreciate asking me to participate in the care of this interesting patient. I will be glad to follow her with you as needed for her rehabilitation. MICHELLE TRUONG MD DR: TASHA/cong JOB#: [id number] / [id number]
[2018-12-26 23:00] VITALS: BP 137/64
[2018-12-27 03:13] VITALS: BP 138/78
[2018-12-27 04:46] LABS: BASO % 0 % (0-3); EOS # 0.1 x10^3/uL (0.0-0.7); EOS % 1 % (0-3); HEMATOCRIT 32.9 % (36.0-47.0); LYMPH # 0.6 x10^3/uL (1.0-4.8); LYMPH % 13 % (24-48); MEAN CORPUSCULAR HEMOGLOBIN 33 pg (25-35); MEAN CORPUSCULAR HGB CONC 33 g/dL (31-37); MEAN CORPUSCULAR VOLUME 98 fL (79-100); MONO # 0.3 x10^3/uL (0.0-1.1); MONO % 7 % (0-9); NEUT # 3.4 x10^3uL (1.8-7.7); NEUT % 79 % (31-73); PLATELET COUNT 145 x10^3/uL (140-400); RED BLOOD COUNT 3.35 x10^6/uL (3.50-5.40); RED CELL DISTRIBUTION WIDTH 19.8 % (11.5-14.5); WHITE BLOOD COUNT 4.3 x10^3/uL (4.0-11.0)
[2018-12-27 05:38] LABS: ALBUMIN 2.4 g/dL (3.4-5.0); ALBUMIN/GLOBULIN RATIO 0.7 (1.0-1.7); CALCIUM 8.5 mg/dL (8.5-10.1); CREATININE 0.7 mg/dL (0.6-1.0); GFR 84.2; POTASSIUM 3.9 mmol/L (3.5-5.1); TOTAL BILIRUBIN 0.4 mg/dL (0.2-1.0)
[2018-12-27 07:00] VITALS: BP 156/64
[2018-12-27] MEDS ORDERED: FUROSEMIDE 40 MG/4 ML VIAL. IVP SCH (09:00)
[2018-12-27] MEDS: NYSTATIN TOPICAL POWDER 15GM BOTTLE. TP SCH ×4 (09:01→20:24)
[2018-12-27] MEDS: DICLOFENAC SODIUM 1% TOPICAL GEL 100GM TUBE. TP SCH ×3 (09:10→20:25)
--- NOTE | 2018-12-27 09:17 | PDOC2 ---
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 She has not had issues with this before and when she checked on Fri am it was 77 which sounds like low for her. She has not had her Pazopanib since Fri. She has some chronic bone issues and pain from cancer - more recently had some eval at [facility] for right shoulder pain and diagnosed with tendonitis - had plain films recently before this episode and no bone mets. Feels like less mobility at shoulder, but does not seem to have much more pain. Past Medical History Cardiovascular: HTN Heme/Onc: Cancer Musculoskeletal: Osteoarthritis Endocrine: Diabetes Past Surgical History Past Surgical History: Appendectomy, Tonsillectomy, Other (knee arhtroscopy) Family History Family History: Cancer (father with prostate cancer, mom with breast cancer), Diabetes, Heart Disease, Hypertension, Stroke Social History No ALCOHOL: none Lives: Alone Current Problem List Problem List Problems Medical Problems: (1) Hypoglycemia Status: Acute Current Medications Current Medications Current Medications Dextrose (Dextrose 50%-Water Syringe) 25 gm STK-MED ONCE IV ; Start 12/24/18 at 19:11; Stop 12/24/18 at 19:12; Status DC Dextrose (Dextrose 50%-Water Syringe) 25 gm 1X ONCE IV Last administered on at 19:18; Start 12/24/18 at 19:15; Stop 12/24/18 at 19:16; Status DC Dextrose/Sodium Chloride 1,000 ml @ 75 mls/hr 1X ONCE IV Last administered on 12/24/18at 19:15; Start 12/24/18 at 19:15; Stop 12/25/18 at 08:34; Status DC Ceftriaxone Sodium (Rocephin) 1 gm 1X ONCE IVP Last administered on 12/24/18at 19:48; Start 12/24/18 at 19:30; Stop 12/24/18 at 19:31; Status DC Ondansetron HCl (Zofran) 4 mg PRN Q8HRS PRN IV NAUSEA/VOMITING; Start 12/24/18 at 20:15; Stop 12/25/18 at 20:14; Status DC Acetaminophen/ Hydrocodone Bitart (Lortab 5/325) 1 tab PRN Q4HRS PRN PO PAIN Last administered on 12/26/18at 19:57; Start 12/24/18 at 22:30 Ibuprofen (Motrin) 200 mg PRN Q6HRS PRN PO INFLAMMATION Last administered on 09:25; Start 12/24/18 at 22:30 Nystatin (Nystop) 1 enid BID TP Last administered on 12/26/18 09:21; Start at 22:30; Stop 12/26/18 at 10:37; Status DC Dextrose (Dextrose 50%-Water Syringe) 25 gm 1X ONCE IV Last administered on at 22:52; Start 12/24/18 at 23:00; Stop 12/24/18 at 23:01; Status DC Dextrose (Dextrose 50%-Water Syringe) 12.5 gm PRN Q15MIN PRN IV SEE COMMENTS Last administered on 12/25/18at 03:55; Start 12/24/18 at 23:00; Stop 12/25/18 at 17:09; Status DC Dextrose (Dextrose 50%-Water Syringe) 12.5 gm PRN Q15MIN PRN IV SEE COMMENTS; Start 12/25/18 at 11:15 Levofloxacin/ Dextrose 100 ml @ 100 mls/hr Q24H IV Last administered on at 12:30; Start 12/25/18 at 12:00 Ondansetron HCl (Zofran) 4 mg PRN Q6HRS PRN IV NAUSEA/VOMITING; Start 12/26/18 at 09:00 Ondansetron HCl (Zofran Odt) 4 mg PRN Q6HRS PRN PO NAUSEA/VOMITING; Start 12/26 at 09:00 Acetaminophen (Tylenol) 500 mg PRN Q6HRS PRN PO MILD PAIN / TEMP; Start at 09:00 Nystatin (Nystop) 1 enid TID TP Last administered on 12/26/18at 19:57; Start at 14:00 Vitamin A/Vitamin D (Vitamin A & D Ointment) 1 enid PRN Q1HR PRN TP SKIN PROTECTION; Start 12/26/18 at 10:45 Furosemide (Lasix) 40 mg 1X ONCE IVP Last administered on 12/26/18at 12:30; Start 12/26/18 at 11:30; Stop 12/26/18 at 11:31; Status DC Furosemide (Lasix) 40 mg DAILY IVP ; Start 12/27/18 at 09:00 Methylprednisolone Acetate (DEPO-Medrol 40MG VIAL) 40 mg 1X ONCE IM ; Start at 13:00; Stop 12/26/18 at 13:01; Status DC Methylprednisolone Acetate (DEPO-Medrol 40MG VIAL) 40 mg 1X ONCE IM ; Start at 13:00; Stop 12/26/18 at 13:01; Status DC Bupivacaine HCl (Sensorcaine-Mpf 0.25%) 10 ml 1X ONCE IJ ; Start 12/26/18 at 13 :00; Stop 12/26/18 at 13:01; Status DC Diclofenac Sodium (Voltaren) 1 enid BID TP Last administered on 12/26/18at 19:58 ; Start 12/26/18 at 21:00 Active Scripts Active Reported Nystatin 15 Gm Powder 1 Enid TP BID Zofran (Ondansetron Hcl) 8 Mg Tablet 8 Mg PO BID PRN Xgeva (Denosumab) 120 Mg/1.7 Ml Vial 120 Mg SQ MONTHLY Votrient (Pazopanib Hcl) 200 Mg Tablet 200 Mg PO TID Hydrocodone-Apap 5-325 (Hydrocodone Bit/Acetaminophen) 1 Each Tablet 1 Tab PO PRN Q4HRS PRN Farxiga (Dapagliflozin Propanediol) 10 Mg Tablet 10 Mg PO DAILY Glimepiride 2 Mg Tablet 1 Tab PO DAILY Ibuprofen 200 Mg Tablet 200 Mg PO PRN Simvastatin 20 Mg Tablet 20 Mg PO DAILY Klor-Con M20 (Potassium Chloride) 20 Meq Tab.er.prt 20 Meq PO DAILY Lasix (Furosemide) 20 Mg Tablet 20 Mg PO DAILY Diovan Hct 320-25 Mg Tablet (Valsartan/Hydrochlorothiazide) 1 Each Tablet 1 Each PO DAILY Allergies Allergies: Coded Allergies: No Known Drug Allergies (Unverified , 10/18/13) ROS General: YES: Fatigue ENDOCRINE: YES: Other (noted above) Gastrointestinal: Yes Nausea (uses ondansetron as premed for votrient and feels like still has some issues with queasiness) Musculoskeletal: Yes Pain In:, Yes Other Physical Exam General: Alert, Oriented X3, Cooperative, No acute distress HEENT: Atraumatic, PERRLA, Mucous membr. moist/pink Lungs: Clear to auscultation Heart: Regular rate Abdomen: Soft, Other (obese) Extremities: Other (edema and chronic venous stasis le) Neuro: Normal speech Psych/Mental Status: Mental status NL, Mood NL MUSCULOSKELETAL: Abnormal passive ROM of (right shoulder) Vitals VITALS Vital Signs Date Time Temp Pulse Resp B/P (MAP) Pulse Ox O2 Delivery O2 Flow Rate FiO2 12/27/18 07:00 98.5 68 20 156/64 (94) 95 Room Air 98.5 Labs Labs Laboratory Tests Test 12/25/18 10:13 12/25/18 11:53 12/25/18 16:35 12/25/18 20:39 Glucose (Fingerstick) 149 mg/dL (70-99) 135 mg/dL (70-99) 137 mg/dL (70-99) 128 mg/dL (70-99) Test 12/26/18 04:15 12/26/18 07:18 12/26/18 11:56 12/26/18 16:38 White Blood Count 3.7 x10^3/uL (4.0-11.0) Red Blood Count 3.49 x10^6/uL (3.50-5.40) Hemoglobin 11.2 g/dL (12.0-15.5) Hematocrit 34.1 % (36.0-47.0) Mean Corpuscular Volume 98 fL (79-100) Mean Corpuscular Hemoglobin 32 pg (25-35) Mean Corpuscular Hemoglobin Concent 33 g/dL (31-37) Red Cell Distribution Width 19.3 % (11.5-14.5) Platelet Count 152 x10^3/uL (140-400) Neutrophils (%) (Auto) 74 % (31-73) Lymphocytes (%) (Auto) 16 % (24-48) Monocytes (%) (Auto) 9 % (0-9) Eosinophils (%) (Auto) 1 % (0-3) Basophils (%) (Auto) 0 % (0-3) Neutrophils # (Auto) 2.7 x10^3uL (1.8-7.7) Lymphocytes # (Auto) 0.6 x10^3/uL (1.0-4.8) Monocytes # (Auto) 0.3 x10^3/uL (0.0-1.1) Eosinophils # (Auto) 0.0 x10^3/uL (0.0-0.7) Basophils # (Auto) 0.0 x10^3/uL (0.0-0.2) Sodium Level 141 mmol/L (136-145) Potassium Level 3.8 mmol/L (3.5-5.1) Chloride Level 106 mmol/L (98-107) Carbon Dioxide Level 30 mmol/L (21-32) Anion Gap 5 (6-14) Blood Urea Nitrogen 20 mg/dL (7-20) Creatinine 0.7 mg/dL (0.6-1.0) Estimated GFR (Cockcroft-Gault) 84.2 BUN/Creatinine Ratio 29 (6-20) Glucose Level 114 mg/dL (70-99) Calcium Level 8.6 mg/dL (8.5-10.1) Total Bilirubin 0.4 mg/dL (0.2-1.0) Aspartate Amino Transf (AST/SGOT) 20 U/L (15-37) Alanine Aminotransferase (ALT/SGPT) 19 U/L (14-59) Alkaline Phosphatase 41 U/L (46-116) Total Protein 5.9 g/dL (6.4-8.2) Albumin 2.3 g/dL (3.4-5.0) Albumin/Globulin Ratio 0.6 (1.0-1.7) Glucose (Fingerstick) 101 mg/dL (70-99) 140 mg/dL (70-99) 160 mg/dL (70-99) Test 12/26/18 20:30 12/27/18 03:35 12/27/18 07:30 Glucose (Fingerstick) 153 mg/dL (70-99) 97 mg/dL (70-99) White Blood Count 4.3 x10^3/uL (4.0-11.0) Red Blood Count 3.35 x10^6/uL (3.50-5.40) Hemoglobin 11.0 g/dL (12.0-15.5) Hematocrit 32.9 % (36.0-47.0) Mean Corpuscular Volume 98 fL (79-100) Mean Corpuscular Hemoglobin 33 pg (25-35) Mean Corpuscular Hemoglobin Concent 33 g/dL (31-37) Red Cell Distribution Width 19.8 % (11.5-14.5) Platelet Count 145 x10^3/uL (140-400) Neutrophils (%) (Auto) 79 % (31-73) Lymphocytes (%) (Auto) 13 % (24-48) Monocytes (%) (Auto) 7 % (0-9) Eosinophils (%) (Auto) 1 % (0-3) Basophils (%) (Auto) 0 % (0-3) Neutrophils # (Auto) 3.4 x10^3uL (1.8-7.7) Lymphocytes # (Auto) 0.6 x10^3/uL (1.0-4.8) Monocytes # (Auto) 0.3 x10^3/uL (0.0-1.1) Eosinophils # (Auto) 0.1 x10^3/uL (0.0-0.7) Basophils # (Auto) 0.0 x10^3/uL (0.0-0.2) Sodium Level 141 mmol/L (136-145) Potassium Level 3.9 mmol/L (3.5-5.1) Chloride Level 104 mmol/L (98-107) Carbon Dioxide Level 29 mmol/L (21-32) Anion Gap 8 (6-14) Blood Urea Nitrogen 22 mg/dL (7-20) Creatinine 0.7 mg/dL (0.6-1.0) Estimated GFR (Cockcroft-Gault) 84.2 BUN/Creatinine Ratio 31 (6-20) Glucose Level 119 mg/dL (70-99) Calcium Level 8.5 mg/dL (8.5-10.1) Total Bilirubin 0.4 mg/dL (0.2-1.0) Aspartate Amino Transf (AST/SGOT) 17 U/L (15-37) Alanine Aminotransferase (ALT/SGPT) 18 U/L (14-59) Alkaline Phosphatase 43 U/L (46-116) Total Protein 6.0 g/dL (6.4-8.2) Albumin 2.4 g/dL (3.4-5.0) Albumin/Globulin Ratio 0.7 (1.0-1.7) Laboratory Tests Test 12/26/18 11:56 12/26/18 16:38 12/26/18 20:30 12/27/18 03:35 Glucose (Fingerstick) 140 mg/dL (70-99) 160 mg/dL (70-99) 153 mg/dL (70-99) White Blood Count 4.3 x10^3/uL (4.0-11.0) Red Blood Count 3.35 x10^6/uL (3.50-5.40) Hemoglobin 11.0 g/dL (12.0-15.5) Hematocrit 32.9 % (36.0-47.0) Mean Corpuscular Volume 98 fL (79-100) Mean Corpuscular Hemoglobin 33 pg (25-35) Mean Corpuscular Hemoglobin Concent 33 g/dL (31-37) Red Cell Distribution Width 19.8 % (11.5-14.5) Platelet Count 145 x10^3/uL (140-400) Neutrophils (%) (Auto) 79 % (31-73) Lymphocytes (%) (Auto) 13 % (24-48) Monocytes (%) (Auto) 7 % (0-9) Eosinophils (%) (Auto) 1 % (0-3) Basophils (%) (Auto) 0 % (0-3) Neutrophils # (Auto) 3.4 x10^3uL (1.8-7.7) Lymphocytes # (Auto) 0.6 x10^3/uL (1.0-4.8) Monocytes # (Auto) 0.3 x10^3/uL (0.0-1.1) Eosinophils # (Auto) 0.1 x10^3/uL (0.0-0.7) Basophils # (Auto) 0.0 x10^3/uL (0.0-0.2) Sodium Level 141 mmol/L (136-145) Potassium Level 3.9 mmol/L (3.5-5.1) Chloride Level 104 mmol/L (98-107) Carbon Dioxide Level 29 mmol/L (21-32) Anion Gap 8 (6-14) Blood Urea Nitrogen 22 mg/dL (7-20) Creatinine 0.7 mg/dL (0.6-1.0) Estimated GFR (Cockcroft-Gault) 84.2 BUN/Creatinine Ratio 31 (6-20) Glucose Level 119 mg/dL (70-99) Calcium Level 8.5 mg/dL (8.5-10.1) Total Bilirubin 0.4 mg/dL (0.2-1.0) Aspartate Amino Transf (AST/SGOT) 17 U/L (15-37) Alanine Aminotransferase (ALT/SGPT) 18 U/L (14-59) Alkaline Phosphatase 43 U/L (46-116) Total Protein 6.0 g/dL (6.4-8.2) Albumin 2.4 g/dL (3.4-5.0) Albumin/Globulin Ratio 0.7 (1.0-1.7) Test 12/27/18 07:30 Glucose (Fingerstick) 97 mg/dL (70-99) Assessment/Plan Assessment/Plan Met renal cell cancer - on pazopanib 600mg since Aug 2018 and seems to tolerate well. I doubt this is on formulary, so told her she would need to have family bring own supply and will likely need to take her own supply to planned rehab as well. She takes ondansetron as premed and this is already ordered. Acutely, no other recs, but she will need to continue f/u with Dr Lewis as outpt and I will let him know of events. She has bone mets. Recent shoulder tendonitis and recent outpt films negative but before fall, will defer to primary any further eval. She has some other outpt eval pending as well. Recent symptomatic hypoglycemia KAREN CASTLE MD Dec 27, 2018 09:17
--- NOTE | 2018-12-27 09:54 | RAD ---
Examination: KNEE STANDING BILAT AP History: PAINFUL DJD OF BOTH KNEES Comparison/Correlation: None Findings: AP frontal views of the knees were obtained. Severe varus deformity of the right and left knee noted. Severe medial compartment narrowing bilaterally is evident with degenerative remodeling and subchondral sclerosis. No acute fracture or bony destruction. Soft tissues are grossly unremarkable. Impression: Severe bilateral varus deformity of the knees. Severe medial compartment degenerative remodeling bilaterally. Electronically signed by: Amanuel Rene MD (12/27/2018 9:51 AM) [facility]
--- NOTE | 2018-12-27 10:37 | PDOC ---
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 difficile She relays taking having numbness of the first 3 digits of the left hand-but no pain Some Headaches which only lasts seconds Plan: PT recommended SNU and she is agreeable Increase Lasix to 40 twice a day today, might be able to go back to 40 once a day tomorrow She is on Lasix 40 once a day at home-she has good urine output here Imodium when necessary Wrist splint to left for what sounds like carpal tunnel Start NSAID for carpal tunnel and some headaches Vitals Vitals Vital Signs Date Time Temp Pulse Resp B/P (MAP) Pulse Ox O2 Delivery O2 Flow Rate FiO2 12/27/18 07:00 98.5 68 20 156/64 (94) 95 Room Air 98.5 Physical Exam General: Alert, Oriented X3, Cooperative, No acute distress Heart: Regular rate Lungs: Clear Abdomen: Soft, Other (obese) Extremities: Other (edema and chronic venous stasis le) Skin: Other (red rash erythematous buttock cheek and grade 1 skin tear on the middle) Labs LABS Laboratory Tests Test 12/26/18 11:56 12/26/18 16:38 12/26/18 20:30 12/27/18 03:35 Glucose (Fingerstick) 140 mg/dL (70-99) 160 mg/dL (70-99) 153 mg/dL (70-99) White Blood Count 4.3 x10^3/uL (4.0-11.0) Red Blood Count 3.35 x10^6/uL (3.50-5.40) Hemoglobin 11.0 g/dL (12.0-15.5) Hematocrit 32.9 % (36.0-47.0) Mean Corpuscular Volume 98 fL (79-100) Mean Corpuscular Hemoglobin 33 pg (25-35) Mean Corpuscular Hemoglobin Concent 33 g/dL (31-37) Red Cell Distribution Width 19.8 % (11.5-14.5) Platelet Count 145 x10^3/uL (140-400) Neutrophils (%) (Auto) 79 % (31-73) Lymphocytes (%) (Auto) 13 % (24-48) Monocytes (%) (Auto) 7 % (0-9) Eosinophils (%) (Auto) 1 % (0-3) Basophils (%) (Auto) 0 % (0-3) Neutrophils # (Auto) 3.4 x10^3uL (1.8-7.7) Lymphocytes # (Auto) 0.6 x10^3/uL (1.0-4.8) Monocytes # (Auto) 0.3 x10^3/uL (0.0-1.1) Eosinophils # (Auto) 0.1 x10^3/uL (0.0-0.7) Basophils # (Auto) 0.0 x10^3/uL (0.0-0.2) Sodium Level 141 mmol/L (136-145) Potassium Level 3.9 mmol/L (3.5-5.1) Chloride Level 104 mmol/L (98-107) Carbon Dioxide Level 29 mmol/L (21-32) Anion Gap 8 (6-14) Blood Urea Nitrogen 22 mg/dL (7-20) Creatinine 0.7 mg/dL (0.6-1.0) Estimated GFR (Cockcroft-Gault) 84.2 BUN/Creatinine Ratio 31 (6-20) Glucose Level 119 mg/dL (70-99) Calcium Level 8.5 mg/dL (8.5-10.1) Total Bilirubin 0.4 mg/dL (0.2-1.0) Aspartate Amino Transf (AST/SGOT) 17 U/L (15-37) Alanine Aminotransferase (ALT/SGPT) 18 U/L (14-59) Alkaline Phosphatase 43 U/L (46-116) Total Protein 6.0 g/dL (6.4-8.2) Albumin 2.4 g/dL (3.4-5.0) Albumin/Globulin Ratio 0.7 (1.0-1.7) Test 12/27/18 07:30 Glucose (Fingerstick) 97 mg/dL (70-99) Assessment and Plan Assessmemt and Plan Problems Medical Problems: (1) Hypoglycemia Status: Acute Comment Review of Relevant I have reviewed the following items tanya (where applicable) has been applied. Labs Laboratory Tests Test 12/25/18 11:53 12/25/18 16:35 12/25/18 20:39 12/26/18 04:15 Glucose (Fingerstick) 135 mg/dL (70-99) 137 mg/dL (70-99) 128 mg/dL (70-99) White Blood Count 3.7 x10^3/uL (4.0-11.0) Red Blood Count 3.49 x10^6/uL (3.50-5.40) Hemoglobin 11.2 g/dL (12.0-15.5) Hematocrit 34.1 % (36.0-47.0) Mean Corpuscular Volume 98 fL (79-100) Mean Corpuscular Hemoglobin 32 pg (25-35) Mean Corpuscular Hemoglobin Concent 33 g/dL (31-37) Red Cell Distribution Width 19.3 % (11.5-14.5) Platelet Count 152 x10^3/uL (140-400) Neutrophils (%) (Auto) 74 % (31-73) Lymphocytes (%) (Auto) 16 % (24-48) Monocytes (%) (Auto) 9 % (0-9) Eosinophils (%) (Auto) 1 % (0-3) Basophils (%) (Auto) 0 % (0-3) Neutrophils # (Auto) 2.7 x10^3uL (1.8-7.7) Lymphocytes # (Auto) 0.6 x10^3/uL (1.0-4.8) Monocytes # (Auto) 0.3 x10^3/uL (0.0-1.1) Eosinophils # (Auto) 0.0 x10^3/uL (0.0-0.7) Basophils # (Auto) 0.0 x10^3/uL (0.0-0.2) Sodium Level 141 mmol/L (136-145) Potassium Level 3.8 mmol/L (3.5-5.1) Chloride Level 106 mmol/L (98-107) Carbon Dioxide Level 30 mmol/L (21-32) Anion Gap 5 (6-14) Blood Urea Nitrogen 20 mg/dL (7-20) Creatinine 0.7 mg/dL (0.6-1.0) Estimated GFR (Cockcroft-Gault) 84.2 BUN/Creatinine Ratio 29 (6-20) Glucose Level 114 mg/dL (70-99) Calcium Level 8.6 mg/dL (8.5-10.1) Total Bilirubin 0.4 mg/dL (0.2-1.0) Aspartate Amino Transf (AST/SGOT) 20 U/L (15-37) Alanine Aminotransferase (ALT/SGPT) 19 U/L (14-59) Alkaline Phosphatase 41 U/L (46-116) Total Protein 5.9 g/dL (6.4-8.2) Albumin 2.3 g/dL (3.4-5.0) Albumin/Globulin Ratio 0.6 (1.0-1.7) Test 12/26/18 07:18 12/26/18 11:56 12/26/18 16:38 12/26/18 20:30 Glucose (Fingerstick) 101 mg/dL (70-99) 140 mg/dL (70-99) 160 mg/dL (70-99) 153 mg/dL (70-99) Test 12/27/18 03:35 12/27/18 07:30 White Blood Count 4.3 x10^3/uL (4.0-11.0) Red Blood Count 3.35 x10^6/uL (3.50-5.40) Hemoglobin 11.0 g/dL (12.0-15.5) Hematocrit 32.9 % (36.0-47.0) Mean Corpuscular Volume 98 fL (79-100) Mean Corpuscular Hemoglobin 33 pg (25-35) Mean Corpuscular Hemoglobin Concent 33 g/dL (31-37) Red Cell Distribution Width 19.8 % (11.5-14.5) Platelet Count 145 x10^3/uL (140-400) Neutrophils (%) (Auto) 79 % (31-73) Lymphocytes (%) (Auto) 13 % (24-48) Monocytes (%) (Auto) 7 % (0-9) Eosinophils (%) (Auto) 1 % (0-3) Basophils (%) (Auto) 0 % (0-3) Neutrophils # (Auto) 3.4 x10^3uL (1.8-7.7) Lymphocytes # (Auto) 0.6 x10^3/uL (1.0-4.8) Monocytes # (Auto) 0.3 x10^3/uL (0.0-1.1) Eosinophils # (Auto) 0.1 x10^3/uL (0.0-0.7) Basophils # (Auto) 0.0 x10^3/uL (0.0-0.2) Sodium Level 141 mmol/L (136-145) Potassium Level 3.9 mmol/L (3.5-5.1) Chloride Level 104 mmol/L (98-107) Carbon Dioxide Level 29 mmol/L (21-32) Anion Gap 8 (6-14) Blood Urea Nitrogen 22 mg/dL (7-20) Creatinine 0.7 mg/dL (0.6-1.0) Estimated GFR (Cockcroft-Gault) 84.2 BUN/Creatinine Ratio 31 (6-20) Glucose Level 119 mg/dL (70-99) Calcium Level 8.5 mg/dL (8.5-10.1) Total Bilirubin 0.4 mg/dL (0.2-1.0) Aspartate Amino Transf (AST/SGOT) 17 U/L (15-37) Alanine Aminotransferase (ALT/SGPT) 18 U/L (14-59) Alkaline Phosphatase 43 U/L (46-116) Total Protein 6.0 g/dL (6.4-8.2) Albumin 2.4 g/dL (3.4-5.0) Albumin/Globulin Ratio 0.7 (1.0-1.7) Glucose (Fingerstick) 97 mg/dL (70-99) Laboratory Tests Test 12/26/18 11:56 12/26/18 16:38 12/26/18 20:30 12/27/18 03:35 Glucose (Fingerstick) 140 mg/dL (70-99) 160 mg/dL (70-99) 153 mg/dL (70-99) White Blood Count 4.3 x10^3/uL (4.0-11.0) Red Blood Count 3.35 x10^6/uL (3.50-5.40) Hemoglobin 11.0 g/dL (12.0-15.5) Hematocrit 32.9 % (36.0-47.0) Mean Corpuscular Volume 98 fL (79-100) Mean Corpuscular Hemoglobin 33 pg (25-35) Mean Corpuscular Hemoglobin Concent 33 g/dL (31-37) Red Cell Distribution Width 19.8 % (11.5-14.5) Platelet Count 145 x10^3/uL (140-400) Neutrophils (%) (Auto) 79 % (31-73) Lymphocytes (%) (Auto) 13 % (24-48) Monocytes (%) (Auto) 7 % (0-9) Eosinophils (%) (Auto) 1 % (0-3) Basophils (%) (Auto) 0 % (0-3) Neutrophils # (Auto) 3.4 x10^3uL (1.8-7.7) Lymphocytes # (Auto) 0.6 x10^3/uL (1.0-4.8) Monocytes # (Auto) 0.3 x10^3/uL (0.0-1.1) Eosinophils # (Auto) 0.1 x10^3/uL (0.0-0.7) Basophils # (Auto) 0.0 x10^3/uL (0.0-0.2) Sodium Level 141 mmol/L (136-145) Potassium Level 3.9 mmol/L (3.5-5.1) Chloride Level 104 mmol/L (98-107) Carbon Dioxide Level 29 mmol/L (21-32) Anion Gap 8 (6-14) Blood Urea Nitrogen 22 mg/dL (7-20) Creatinine 0.7 mg/dL (0.6-1.0) Estimated GFR (Cockcroft-Gault) 84.2 BUN/Creatinine Ratio 31 (6-20) Glucose Level 119 mg/dL (70-99) Calcium Level 8.5 mg/dL (8.5-10.1) Total Bilirubin 0.4 mg/dL (0.2-1.0) Aspartate Amino Transf (AST/SGOT) 17 U/L (15-37) Alanine Aminotransferase (ALT/SGPT) 18 U/L (14-59) Alkaline Phosphatase 43 U/L (46-116) Total Protein 6.0 g/dL (6.4-8.2) Albumin 2.4 g/dL (3.4-5.0) Albumin/Globulin Ratio 0.7 (1.0-1.7) Test 12/27/18 07:30 Glucose (Fingerstick) 97 mg/dL (70-99) Microbiology 12/24/18 Urine Culture - Preliminary, Resulted 12/24/18 Urine Culture Result 1 (LION) - Preliminary, Resulted Medications Current Medications Dextrose (Dextrose 50%-Water Syringe) 25 gm STK-MED ONCE IV ; Start 12/24/18 at 19:11; Stop 12/24/18 at 19:12; Status DC Dextrose (Dextrose 50%-Water Syringe) 25 gm 1X ONCE IV Last administered on at 19:18; Start 12/24/18 at 19:15; Stop 12/24/18 at 19:16; Status DC Dextrose/Sodium Chloride 1,000 ml @ 75 mls/hr 1X ONCE IV Last administered on 12/24/18at 19:15; Start 12/24/18 at 19:15; Stop 12/25/18 at 08:34; Status DC Ceftriaxone Sodium (Rocephin) 1 gm 1X ONCE IVP Last administered on 12/24/18at 19:48; Start 12/24/18 at 19:30; Stop 12/24/18 at 19:31; Status DC Ondansetron HCl (Zofran) 4 mg PRN Q8HRS PRN IV NAUSEA/VOMITING; Start 12/24/18 at 20:15; Stop 12/25/18 at 20:14; Status DC Acetaminophen/ Hydrocodone Bitart (Lortab 5/325) 1 tab PRN Q4HRS PRN PO PAIN Last administered on 12/26/18at 19:57; Start 12/24/18 at 22:30 Ibuprofen (Motrin) 200 mg PRN Q6HRS PRN PO INFLAMMATION Last administered on at 09:25; Start 12/24/18 at 22:30 Nystatin (Nystop) 1 enid BID TP Last administered on 12/26/18at 09:21; Start at 22:30; Stop 12/26/18 at 10:37; Status DC Dextrose (Dextrose 50%-Water Syringe) 25 gm 1X ONCE IV Last administered on at 22:52; Start 12/24/18 at 23:00; Stop 12/24/18 at 23:01; Status DC Dextrose (Dextrose 50%-Water Syringe) 12.5 gm PRN Q15MIN PRN IV SEE COMMENTS Last administered on 12/25/18at 03:55; Start 12/24/18 at 23:00; Stop 12/25/18 at 17:09; Status DC Dextrose (Dextrose 50%-Water Syringe) 12.5 gm PRN Q15MIN PRN IV SEE COMMENTS; Start 12/25/18 at 11:15 Levofloxacin/ Dextrose 100 ml @ 100 mls/hr Q24H IV Last administered on at 12:30; Start 12/25/18 at 12:00 Ondansetron HCl (Zofran) 4 mg PRN Q6HRS PRN IV NAUSEA/VOMITING; Start 12/26/18 at 09:00 Ondansetron HCl (Zofran Odt) 4 mg PRN Q6HRS PRN PO NAUSEA/VOMITING; Start 12/26 at 09:00 Acetaminophen (Tylenol) 500 mg PRN Q6HRS PRN PO MILD PAIN / TEMP; Start at 09:00 Nystatin (Nystop) 1 enid TID TP Last administered on 12/27/18at 09:01; Start at 14:00 Vitamin A/Vitamin D (Vitamin A & D Ointment) 1 enid PRN Q1HR PRN TP SKIN PROTECTION; Start 12/26/18 at 10:45 Furosemide (Lasix) 40 mg 1X ONCE IVP Last administered on 12/26/18at 12:30; Start 12/26/18 at 11:30; Stop 12/26/18 at 11:31; Status DC Furosemide (Lasix) 40 mg DAILY IVP Last administered on 12/27/18at 08:55; Start 12/27/18 at 09:00 Methylprednisolone Acetate (DEPO-Medrol 40MG VIAL) 40 mg 1X ONCE IM ; Start at 13:00; Stop 12/26/18 at 13:01; Status DC Methylprednisolone Acetate (DEPO-Medrol 40MG VIAL) 40 mg 1X ONCE IM ; Start at 13:00; Stop 12/26/18 at 13:01; Status DC Bupivacaine HCl (Sensorcaine-Mpf 0.25%) 10 ml 1X ONCE IJ ; Start 12/26/18 at 13 :00; Stop 12/26/18 at 13:01; Status DC Diclofenac Sodium (Voltaren) 1 enid BID TP Last administered on 12/27/18at 09:10 ; Start 12/26/18 at 21:00 Non-Formulary Medication 1 ea DAILY PO ; Start 12/28/18 at 09:00; Status UNV Active Scripts Active Reported Nystatin 15 Gm Powder 1 [place] TP BID Zofran (Ondansetron Hcl) 8 Mg Tablet 8 Mg PO BID PRN Xgeva (Denosumab) 120 Mg/1.7 Ml Vial 120 Mg SQ MONTHLY Votrient (Pazopanib Hcl) 200 Mg Tablet 200 Mg PO TID Hydrocodone-Apap 5-325 (Hydrocodone Bit/Acetaminophen) 1 Each Tablet 1 Tab PO PRN Q4HRS PRN Farxiga (Dapagliflozin Propanediol) 10 Mg Tablet 10 Mg PO DAILY Glimepiride 2 Mg Tablet 1 Tab PO DAILY Ibuprofen 200 Mg Tablet 200 Mg PO PRN Simvastatin 20 Mg Tablet 20 Mg PO DAILY Klor-Con M20 (Potassium Chloride) 20 Meq Tab.er.prt 20 Meq PO DAILY Lasix (Furosemide) 20 Mg Tablet 20 Mg PO DAILY Diovan Hct 320-25 Mg Tablet (Valsartan/Hydrochlorothiazide) 1 Each Tablet 1 Each PO DAILY Vitals/I & O Vital Sign - Last 24 Hours 12/26/18 12/26/18 12/26/18 12/26/18 11:00 15:00 19:00 19:57 Temp 98.1 98.0 98.2 98.1 98.0 98.2 Pulse 75 92 80 Resp 18 16 20 18 B/P (MAP) 136/57 (83) 118/65 (82) 137/62 (87) Pulse Ox 98 96 96 96 O2 Delivery Room Air Room Air Room Air Room Air 12/26/18 12/26/18 12/26/18 12/27/18 20:00 20:57 23:00 03:13 Temp 98.2 97.3 98.2 97.3 Pulse 72 76 Resp 18 20 20 B/P (MAP) 137/64 (88) 138/78 (98) Pulse Ox 96 95 98 O2 Delivery Room Air Room Air Room Air Room Air 12/27/18 07:00 Temp 98.5 98.5 Pulse 68 Resp 20 B/P (MAP) 156/64 (94) Pulse Ox 95 O2 Delivery Room Air Intake and Output 12/26/18 12/26/18 12/27/18 15:00 23:00 07:00 Intake Total 0 ml Output Total 0 ml Balance 0 ml 0 ml ELENA KAPADIA MD Dec 27, 2018 10:37
[2018-12-27 11:00] VITALS: BP 131/70
[2018-12-27] MEDS: NAPROXEN 500 MG TABLET PO SCH ×2 (12:03→20:21)
[2018-12-27 15:00] VITALS: BP 136/76
[2018-12-27 19:00] VITALS: BP 130/64
[2018-12-27] MEDS: FUROSEMIDE 40 MG/4 ML VIAL. IVP SCH (20:16)
[2018-12-27] MEDS: HYDROcodone/APAP 5/325MG 1 TAB TABLET PO PRN (20:23)
[2018-12-27 23:00] VITALS: BP 131/68
[2018-12-28 03:01] VITALS: BP 127/65
[2018-12-28 04:14] LABS: CALCIUM 8.7 mg/dL (8.5-10.1); CREATININE 0.8 mg/dL (0.6-1.0); GFR 72.2; POTASSIUM 3.5 mmol/L (3.5-5.1)
[2018-12-28 07:00] VITALS: BP 103/70
[2018-12-28] MEDS ORDERED: VOTRIENT PO SCH (07:00)
[2018-12-28] MEDS: NAPROXEN 500 MG TABLET PO SCH (08:45)
[2018-12-28] MEDS: FUROSEMIDE 40 MG/4 ML VIAL. IVP SCH (08:46)
--- NOTE | 2018-12-28 08:59 | NUR ---
Votrient not given at 0700 as not available. Will give zofran at 1015 per patient request and then Votrient at 1030 per her request. See emar.
--- NOTE | 2018-12-28 09:19 | PDOC ---
PROGRESS NOTES Subjective Subjective She feels better with her knees and right shoulder after injections and use of diclofenac gel, She is transferring with supervision.She had varus deformity of both knees with bone in to bone narrowing of medial knee joint line on x-ray. Objective Objective Vital Signs Date Time Temp Pulse Resp B/P (MAP) Pulse Ox O2 Delivery O2 Flow Rate FiO2 12/28/18 07:00 98.2 66 18 103/70 (81) 96 Room Air 98.2 Intake and Output 12/28/18 07:00 Intake Total 1260 ml Output Total 600 ml Balance 660 ml Intake Oral 1160 ml IV Total 100 ml Output Urine Total 600 ml # Voids 7 # Bowel Movements 2 Physical Exam Physical Exam To get her up as tolerated and to SNF or home when medically stable. Assessment Assessment Problems Medical Problems: (1) Hypoglycemia Status: Acute Comment Review of Relevant I have reviewed the following items tanya (where applicable) has been applied. Labs Laboratory Tests Test 12/26/18 11:56 12/26/18 16:38 12/26/18 20:30 12/27/18 03:35 Glucose (Fingerstick) 140 mg/dL (70-99) 160 mg/dL (70-99) 153 mg/dL (70-99) White Blood Count 4.3 x10^3/uL (4.0-11.0) Red Blood Count 3.35 x10^6/uL (3.50-5.40) Hemoglobin 11.0 g/dL (12.0-15.5) Hematocrit 32.9 % (36.0-47.0) Mean Corpuscular Volume 98 fL (79-100) Mean Corpuscular Hemoglobin 33 pg (25-35) Mean Corpuscular Hemoglobin Concent 33 g/dL (31-37) Red Cell Distribution Width 19.8 % (11.5-14.5) Platelet Count 145 x10^3/uL (140-400) Neutrophils (%) (Auto) 79 % (31-73) Lymphocytes (%) (Auto) 13 % (24-48) Monocytes (%) (Auto) 7 % (0-9) Eosinophils (%) (Auto) 1 % (0-3) Basophils (%) (Auto) 0 % (0-3) Neutrophils # (Auto) 3.4 x10^3uL (1.8-7.7) Lymphocytes # (Auto) 0.6 x10^3/uL (1.0-4.8) Monocytes # (Auto) 0.3 x10^3/uL (0.0-1.1) Eosinophils # (Auto) 0.1 x10^3/uL (0.0-0.7) Basophils # (Auto) 0.0 x10^3/uL (0.0-0.2) Sodium Level 141 mmol/L (136-145) Potassium Level 3.9 mmol/L (3.5-5.1) Chloride Level 104 mmol/L (98-107) Carbon Dioxide Level 29 mmol/L (21-32) Anion Gap 8 (6-14) Blood Urea Nitrogen 22 mg/dL (7-20) Creatinine 0.7 mg/dL (0.6-1.0) Estimated GFR (Cockcroft-Gault) 84.2 BUN/Creatinine Ratio 31 (6-20) Glucose Level 119 mg/dL (70-99) Calcium Level 8.5 mg/dL (8.5-10.1) Total Bilirubin 0.4 mg/dL (0.2-1.0) Aspartate Amino Transf (AST/SGOT) 17 U/L (15-37) Alanine Aminotransferase (ALT/SGPT) 18 U/L (14-59) Alkaline Phosphatase 43 U/L (46-116) Total Protein 6.0 g/dL (6.4-8.2) Albumin 2.4 g/dL (3.4-5.0) Albumin/Globulin Ratio 0.7 (1.0-1.7) Test 12/27/18 07:30 12/27/18 10:50 12/27/18 16:28 12/27/18 20:03 Glucose (Fingerstick) 97 mg/dL (70-99) 143 mg/dL (70-99) 123 mg/dL (70-99) 143 mg/dL (70-99) Test 12/28/18 03:05 12/28/18 07:09 Sodium Level 144 mmol/L (136-145) Potassium Level 3.5 mmol/L (3.5-5.1) Chloride Level 105 mmol/L (98-107) Carbon Dioxide Level 30 mmol/L (21-32) Anion Gap 9 (6-14) Blood Urea Nitrogen 29 mg/dL (7-20) Creatinine 0.8 mg/dL (0.6-1.0) Estimated GFR (Cockcroft-Gault) 72.2 Glucose Level 119 mg/dL (70-99) Calcium Level 8.7 mg/dL (8.5-10.1) Glucose (Fingerstick) 108 mg/dL (70-99) Laboratory Tests Test 12/27/18 10:50 12/27/18 16:28 12/27/18 20:03 12/28/18 03:05 Glucose (Fingerstick) 143 mg/dL (70-99) 123 mg/dL (70-99) 143 mg/dL (70-99) Sodium Level 144 mmol/L (136-145) Potassium Level 3.5 mmol/L (3.5-5.1) Chloride Level 105 mmol/L (98-107) Carbon Dioxide Level 30 mmol/L (21-32) Anion Gap 9 (6-14) Blood Urea Nitrogen 29 mg/dL (7-20) Creatinine 0.8 mg/dL (0.6-1.0) Estimated GFR (Cockcroft-Gault) 72.2 Glucose Level 119 mg/dL (70-99) Calcium Level 8.7 mg/dL (8.5-10.1) Test 12/28/18 07:09 Glucose (Fingerstick) 108 mg/dL (70-99) Microbiology 12/24/18 Urine Culture - Final, Complete 12/24/18 Urine Culture Result 1 (LION) - Final, Complete 12/24/18 Antimicrobic Susceptibility - Final, Complete Medications Current Medications Dextrose (Dextrose 50%-Water Syringe) 25 gm STK-MED ONCE IV ; Start 12/24/18 at 19:11; Stop 12/24/18 at 19:12; Status DC Dextrose (Dextrose 50%-Water Syringe) 25 gm 1X ONCE IV Last administered on at 19:18; Start 12/24/18 at 19:15; Stop 12/24/18 at 19:16; Status DC Dextrose/Sodium Chloride 1,000 ml @ 75 mls/hr 1X ONCE IV Last administered on 12/24/18at 19:15; Start 12/24/18 at 19:15; Stop 12/25/18 at 08:34; Status DC Ceftriaxone Sodium (Rocephin) 1 gm 1X ONCE IVP Last administered on 12/24/18at 19:48; Start 12/24/18 at 19:30; Stop 12/24/18 at 19:31; Status DC Ondansetron HCl (Zofran) 4 mg PRN Q8HRS PRN IV NAUSEA/VOMITING; Start 12/24/18 at 20:15; Stop 12/25/18 at 20:14; Status DC Acetaminophen/ Hydrocodone Bitart (Lortab 5/325) 1 tab PRN Q4HRS PRN PO MODERATE PAIN/SEVERE PAIN Last administered on 12/27/18at 20:23; Start 12/24/18 at 22:30 Ibuprofen (Motrin) 200 mg PRN Q6HRS PRN PO INFLAMMATION Last administered on at 09:25; Start 12/24/18 at 22:30; Stop 12/27/18 at 10:39; Status DC Nystatin (Nystop) 1 enid BID TP Last administered on 12/26/18at 09:21; Start at 22:30; Stop 12/26/18 at 10:37; Status DC Dextrose (Dextrose 50%-Water Syringe) 25 gm 1X ONCE IV Last administered on at 22:52; Start 12/24/18 at 23:00; Stop 12/24/18 at 23:01; Status DC Dextrose (Dextrose 50%-Water Syringe) 12.5 gm PRN Q15MIN PRN IV SEE COMMENTS Last administered on 12/25/18at 03:55; Start 12/24/18 at 23:00; Stop 12/25/18 at 17:09; Status DC Dextrose (Dextrose 50%-Water Syringe) 12.5 gm PRN Q15MIN PRN IV SEE COMMENTS; Start 12/25/18 at 11:15 Levofloxacin/ Dextrose 100 ml @ 100 mls/hr Q24H IV Last administered on at 12:04; Start 12/25/18 at 12:00 Ondansetron HCl (Zofran) 4 mg PRN Q6HRS PRN IV NAUSEA/VOMITING; Start 12/26/18 at 09:00 Ondansetron HCl (Zofran Odt) 4 mg PRN Q6HRS PRN PO NAUSEA/VOMITING; Start 12/26 at 09:00 Acetaminophen (Tylenol) 500 mg PRN Q6HRS PRN PO MILD PAIN / TEMP; Start at 09:00 Nystatin (Nystop) 1 enid TID TP Last administered on 12/27/18at 20:24; Start at 14:00 Vitamin A/Vitamin D (Vitamin A & D Ointment) 1 enid PRN Q1HR PRN TP SKIN PROTECTION; Start 12/26/18 at 10:45 Furosemide (Lasix) 40 mg 1X ONCE IVP Last administered on 12/26/18 12:30; Start 12/26/18 at 11:30; Stop 12/26/18 at 11:31; Status DC Furosemide (Lasix) 40 mg DAILY IVP Last administered on 12/27/18 08:55; Start 12/27/18 at 09:00; Stop 12/27/18 at 10:34; Status DC Methylprednisolone Acetate (DEPO-Medrol 40MG VIAL) 40 mg 1X ONCE IM ; Start at 13:00; Stop 12/26/18 at 13:01; Status DC Methylprednisolone Acetate (DEPO-Medrol 40MG VIAL) 40 mg 1X ONCE IM ; Start at 13:00; Stop 12/26/18 at 13:01; Status DC Bupivacaine HCl (Sensorcaine-Mpf 0.25%) 10 ml 1X ONCE IJ ; Start 12/26/18 at 13 :00; Stop 12/26/18 at 13:01; Status DC Diclofenac Sodium (Voltaren) 1 enid BID TP Last administered on 12/27/18 20:25 ; Start 12/26/18 at 21:00 Non-Formulary Medication 3 ea DAILY07 PO ; Start 12/28/18 at 07:00 Furosemide (Lasix) 40 mg BID IVP Last administered on 12/28/18 08:46; Start at 21:00 Naproxen (Naprosyn) 500 mg BID PO Last administered on 12/28/18 08:45; Start 12/27/18 at 11:00 Active Scripts Active Reported Nystatin 15 Gm Powder 1 [place] TP BID Zofran (Ondansetron Hcl) 8 Mg Tablet 8 Mg PO BID PRN Xgeva (Denosumab) 120 Mg/1.7 Ml Vial 120 Mg SQ MONTHLY Votrient (Pazopanib Hcl) 200 Mg Tablet 200 Mg PO TID Hydrocodone-Apap 5-325 (Hydrocodone Bit/Acetaminophen) 1 Each Tablet 1 Tab PO PRN Q4HRS PRN Farxiga (Dapagliflozin Propanediol) 10 Mg Tablet 10 Mg PO DAILY Glimepiride 2 Mg Tablet 1 Tab PO DAILY Ibuprofen 200 Mg Tablet 200 Mg PO PRN Simvastatin 20 Mg Tablet 20 Mg PO DAILY Klor-Con M20 (Potassium Chloride) 20 Meq Tab.er.prt 20 Meq PO DAILY Lasix (Furosemide) 20 Mg Tablet 20 Mg PO DAILY Diovan Hct 320-25 Mg Tablet (Valsartan/Hydrochlorothiazide) 1 Each Tablet 1 Each PO DAILY Vitals/I & O Vital Sign - Last 24 Hours 12/27/18 12/27/18 12/27/18 12/27/18 11:00 15:00 19:00 19:41 Temp 98.0 98.2 97.6 98.0 98.2 97.6 Pulse 76 77 67 Resp 20 20 20 B/P (MAP) 131/70 (90) 136/76 (96) 130/64 (86) Pulse Ox 96 96 98 O2 Delivery Room Air Room Air Room Air Room Air 12/27/18 12/27/18 12/27/18 12/28/18 20:23 21:25 23:00 03:01 Temp 97.9 97.7 97.9 97.7 Pulse 81 65 Resp 18 18 20 20 B/P (MAP) 131/68 (89) 127/65 (85) Pulse Ox 98 98 96 97 O2 Delivery Room Air Room Air Room Air Room Air 12/28/18 07:00 Temp 98.2 98.2 Pulse 66 Resp 18 B/P (MAP) 103/70 (81) Pulse Ox 96 O2 Delivery Room Air Intake and Output 12/27/18 12/27/18 12/28/18 15:00 23:00 07:00 Intake Total 550 ml 710 ml Output Total 600 ml Balance 550 ml 710 ml -600 ml MICHELLE TRUONG MD Dec 28, 2018 09:19
--- NOTE | 2018-12-28 09:43 | NUR ---
[facility] following pt. PT/OT recommends SNU. Spoke with pt at bedside about SNU options. [facility] phoned and faxed referral to [facility]. Pt acceptance and admission pending. [facility] requested [facility] to submit for auth if they clinically accept pt. Will continue to follow. WALDEMAR Physician.
[2018-12-28 10:47] VITALS: BP 126/62
[2018-12-28] MEDS ORDERED: FURO-68 PO ×2 (11:40)
[2018-12-28] MEDS ORDERED: LEVO500T59 PO (11:40)
[2018-12-28] MEDS ORDERED: DICL100G18 TP (11:40)
[2018-12-28] MEDS ORDERED: NAPR-683 PO (11:40)
--- NOTE | 2018-12-28 11:41 | SNU/HH DC ---
DISCHARGE ORDERS DISCHARGE INFORMATION: DISCHARGE DATE: Dec 28, 2018 FINAL DIAGNOSIS Problems Medical Problems: (1) Hypoglycemia Status: Acute CONDITION ON DISCHARGE: Stable CODE STATUS: Code Status: Full INTERMEDIATE: SNF STAY <30 DAYS: Yes HOSPICE: HOSPICE: No HOSPICE EVAL & TREAT: No POST DISCHARGE ORDERS: DIET AFTER DISCHARGE: ADA CHECKS AFTER DISCHARGE: CHECKS AFTER DISCHARGE: Check blood press - daily TREATMENT/EQUIPMENT ORDERS: ADAPTIVE EQUIPMENT NEEDED: Four wheeled walker Physical Therapy For: Evalulation/Treatment Occupational Therapy For: Evaluation/Treatment DISCHARGE MEDICATIONS: Home Meds Active Scripts Levofloxacin (LEVAQUIN) 500 Mg Tablet, 1 TAB PO DAILY for infcetion, #7 TAB Prov:ELENA KAPADIA MD 12/28/18 Furosemide (LASIX) 40 Mg Tablet, 40 MG PO DAILY for leg edma, after the 7 days , #30 TAB Prov:ELENA KAPADIA MD 12/28/18 Furosemide (LASIX) 40 Mg Tablet, 40 MG PO BID for 7, #14 TAB Prov:ELENA KAPADIA MD 12/28/18 Naproxen (NAPROSYN) 500 Mg Tablet, 500 MG PO BID for crapla tammi left MDD 1, #14 TAB Prov:ELENA KAPADIA MD 12/28/18 Diclofenac Sodium (VOLTAREN) 100 Gm Gel..gram., 1 BRADLY TP BID for pain MDD 1 for 7 Days, #14 EACH Prov:ELENA KAPADIA MD 12/28/18 Reported Medications Nystatin (NYSTATIN) 15 Gm Powder, 1 BRADLY TP BID for YEAST, #1 BOTTLE 12/24/18 Ondansetron Hcl (ZOFRAN) 8 Mg Tablet, 8 MG PO BID PRN for NAUSEA/VOMITING 10/22/18 Denosumab (XGEVA) 120 Mg/1.7 Ml Vial, 120 MG SQ monthly for Bone Mets, EACH 09/08/18 Pazopanib Hcl (VOTRIENT) 200 Mg Tablet, 200 MG PO TID for Metastatic Renal Cell Ca 09/08/18 Hydrocodone Bit/Acetaminophen (HYDROCODONE-APAP 5-325 ) 1 Each Tablet, 1 TAB PO PRN Q4HRS PRN for PAIN 06/16/18 Dapagliflozin Propanediol (FARXIGA) 10 Mg Tablet, 10 MG PO DAILY for diabetes 06/06/18 Glimepiride (GLIMEPIRIDE) 2 Mg Tablet, 1 TAB PO DAILY for diabetes 06/06/18 Ibuprofen (IBUPROFEN) 200 Mg Tablet, 200 MG PO PRN for MILD PAIN 10/18/13 Simvastatin (SIMVASTATIN) 20 Mg Tablet, 20 MG PO DAILY for HLD 10/18/13 Potassium Chloride (KLOR-CON M20) 20 Meq Tab.er.prt, 20 MEQ PO DAILY for supplement 10/18/13 Furosemide (LASIX) 20 Mg Tablet, 20 MG PO DAILY for diuretic 10/18/13 Valsartan/Hydrochlorothiazide (DIOVAN HCT 320-25 MG TABLET) 1 Each Tablet, 1 EACH PO DAILY for HTN 10/18/13 ELENA KAPADIA MD Dec 28, 2018 11:41
--- NOTE | 2018-12-28 11:44 | PDOC3 ---
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 - missed 2 chemo s/ post bilateral knee injections by physiatry 12/26/18 tendinitis right shoulder Carpal tunnel left hand LEft hand Predominant Morbid obesity, BMI 55.2 Final Diagnosis Problems Medical Problems: (1) Hypoglycemia Status: Acute Brief Hospital Course Allergies Allergies Coded Allergies Type Severity Reaction Last Updated Verified No Known Drug Allergies 10/18/13 No Vital Signs Vital Signs Date Time Temp Pulse Resp B/P (MAP) Pulse Ox O2 Delivery O2 Flow Rate FiO2 12/28/18 10:47 98.0 78 18 126/62 (83) 98 Room Air 98.0 Lab Results Laboratory Tests Test 12/26/18 11:56 12/26/18 16:38 12/26/18 20:30 12/27/18 03:35 Glucose (Fingerstick) 140 mg/dL (70-99) 160 mg/dL (70-99) 153 mg/dL (70-99) White Blood Count 4.3 x10^3/uL (4.0-11.0) Red Blood Count 3.35 x10^6/uL (3.50-5.40) Hemoglobin 11.0 g/dL (12.0-15.5) Hematocrit 32.9 % (36.0-47.0) Mean Corpuscular Volume 98 fL (79-100) Mean Corpuscular Hemoglobin 33 pg (25-35) Mean Corpuscular Hemoglobin Concent 33 g/dL (31-37) Red Cell Distribution Width 19.8 % (11.5-14.5) Platelet Count 145 x10^3/uL (140-400) Neutrophils (%) (Auto) 79 % (31-73) Lymphocytes (%) (Auto) 13 % (24-48) Monocytes (%) (Auto) 7 % (0-9) Eosinophils (%) (Auto) 1 % (0-3) Basophils (%) (Auto) 0 % (0-3) Neutrophils # (Auto) 3.4 x10^3uL (1.8-7.7) Lymphocytes # (Auto) 0.6 x10^3/uL (1.0-4.8) Monocytes # (Auto) 0.3 x10^3/uL (0.0-1.1) Eosinophils # (Auto) 0.1 x10^3/uL (0.0-0.7) Basophils # (Auto) 0.0 x10^3/uL (0.0-0.2) Sodium Level 141 mmol/L (136-145) Potassium Level 3.9 mmol/L (3.5-5.1) Chloride Level 104 mmol/L (98-107) Carbon Dioxide Level 29 mmol/L (21-32) Anion Gap 8 (6-14) Blood Urea Nitrogen 22 mg/dL (7-20) Creatinine 0.7 mg/dL (0.6-1.0) Estimated GFR (Cockcroft-Gault) 84.2 BUN/Creatinine Ratio 31 (6-20) Glucose Level 119 mg/dL (70-99) Calcium Level 8.5 mg/dL (8.5-10.1) Total Bilirubin 0.4 mg/dL (0.2-1.0) Aspartate Amino Transf (AST/SGOT) 17 U/L (15-37) Alanine Aminotransferase (ALT/SGPT) 18 U/L (14-59) Alkaline Phosphatase 43 U/L (46-116) Total Protein 6.0 g/dL (6.4-8.2) Albumin 2.4 g/dL (3.4-5.0) Albumin/Globulin Ratio 0.7 (1.0-1.7) Test 12/27/18 07:30 12/27/18 10:50 12/27/18 16:28 12/27/18 20:03 Glucose (Fingerstick) 97 mg/dL (70-99) 143 mg/dL (70-99) 123 mg/dL (70-99) 143 mg/dL (70-99) Test 12/28/18 03:05 12/28/18 07:09 12/28/18 11:27 Sodium Level 144 mmol/L (136-145) Potassium Level 3.5 mmol/L (3.5-5.1) Chloride Level 105 mmol/L (98-107) Carbon Dioxide Level 30 mmol/L (21-32) Anion Gap 9 (6-14) Blood Urea Nitrogen 29 mg/dL (7-20) Creatinine 0.8 mg/dL (0.6-1.0) Estimated GFR (Cockcroft-Gault) 72.2 Glucose Level 119 mg/dL (70-99) Calcium Level 8.7 mg/dL (8.5-10.1) Glucose (Fingerstick) 108 mg/dL (70-99) 108 mg/dL (70-99) Laboratory Tests Test 12/27/18 16:28 12/27/18 20:03 12/28/18 03:05 12/28/18 07:09 Glucose (Fingerstick) 123 mg/dL (70-99) 143 mg/dL (70-99) 108 mg/dL (70-99) Sodium Level 144 mmol/L (136-145) Potassium Level 3.5 mmol/L (3.5-5.1) Chloride Level 105 mmol/L (98-107) Carbon Dioxide Level 30 mmol/L (21-32) Anion Gap 9 (6-14) Blood Urea Nitrogen 29 mg/dL (7-20) Creatinine 0.8 mg/dL (0.6-1.0) Estimated GFR (Cockcroft-Gault) 72.2 Glucose Level 119 mg/dL (70-99) Calcium Level 8.7 mg/dL (8.5-10.1) Test 12/28/18 11:27 Glucose (Fingerstick) 108 mg/dL (70-99) Brief Hospital Course Ms. Noe is a 63 old for morbidly obese female BMI 55.2 naturally has difficulty transferring herself or even shifting from one side to another, comes in because of hypoglycemia and also a rash on bilateral buttock cheek with some skin abrasion at the center. This is from chronic stasis from not being able to turn and sitting on one spot for too long time. She has a daughter daughter who tries to take care of her but is also quite difficult for her as the patient is a very big lady. She also has some sort of cancer that she follows closely with Dr. Lewis but that is not an active issue during her hospitalization. She had some multiple musculoskeletal complaints couple tunnel on the left, comanage with physiatry. Right shoulder tendinitis or rotator cuff issue which she follows up with another doctor. Needed bilateral knee injections and that seems to be better. PT has recommended SNU and social work screen for [facility]. Patient is agreeable. Did advise about losing weight and most of her problems will diminish. And she understands. Consults performed physiatry Procedures performed injections of bilateral knees On Levaquin for either UTI or the rash which seems to be getting better as long as she does not stay on one spot I also did needed to diurese her 40 once a day Lasix at home, I had to diurese with 40 twice a day IV dose with good results of bilateral legs. I did advise her to take 40 twice a day maybe for a week or so and go back to once a day dosing once the swelling of the legs has significantly improved Discharge time 40 minutes. 50% DC education counseling. Discharge Information Condition at Discharge: Improved, Stable Disposition/Orders: Other (snu) Scheduled Dapagliflozin Propanediol (Farxiga) 10 Mg Tablet, 10 MG PO DAILY for diabetes, ( Reported) Entered as Reported by: RAGHAVENDRA GALDAMEZ on 06/06/18 0959 Last Action: Reviewed on 12/24/181936 by MARTITA BOLAND Denosumab (Xgeva) 120 Mg/1.7 Ml Vial, 120 MG SQ monthly for Bone Mets, (Reported ) Entered as Reported by: COLIN DUBOIS on 09/08/18 1154 Last Action: Reviewed on 12/24/181936 by MARTITA BOLAND Diclofenac Sodium (Voltaren) 100 Gm Gel..gram., 1 BRADLY TP BID for pain MDD 1 for 7 Days, #14 Prescribed by: ELENA KAPADIA on 12/28/18 1140 Furosemide (Lasix) 20 Mg Tablet, 20 MG PO DAILY for diuretic, (Reported) Entered as Reported by: FRANCOIS SMITH on 10/18/13 0933 Last Action: Reviewed on 12/24/181936 by MARTITA BOLAND Furosemide (Lasix) 40 Mg Tablet, 40 MG PO BID for 7, #14 Prescribed by: ELENA KAPADIA on 12/28/18 1140 Furosemide (Lasix) 40 Mg Tablet, 40 MG PO DAILY for leg edma, after the 7 days , #30 Prescribed by: ELENA KAPADIA on 12/28/18 1140 Glimepiride (Glimepiride) 2 Mg Tablet, 1 TAB PO DAILY for diabetes, (Reported) Entered as Reported by: RAGHAVENDRA GALDAMEZ on 06/06/18 0959 Last Action: Reviewed on 12/24/181936 by MARTITA BOLAND Levofloxacin (Levaquin) 500 Mg Tablet, 1 TAB PO DAILY for infcetion, #7 Prescribed by: ELENA KAPADIA on 12/28/18 1140 Naproxen (Naprosyn) 500 Mg Tablet, 500 MG PO BID for crapla tammi left MDD 1, #14 Prescribed by: ELENA KAPADIA on 12/28/18 1140 Nystatin (Nystatin) 15 Gm Powder, 1 BRADLY TP BID for YEAST, #1 (Reported) Entered as Reported by: RERE ECHOLS on 12/24/182225 Last Action: Continued on 12/24/182225 by RERE ECHOLS Pazopanib Hcl (Votrient) 200 Mg Tablet, 200 MG PO TID for Metastatic Renal Cell Ca, (Reported) Entered as Reported by: COLIN DUBOIS on 09/08/18 1154 Last Action: Reviewed on 12/24/181936 by MARTITA BOLAND Potassium Chloride (Klor-Con M20) 20 Meq Tab.er.prt, 20 MEQ PO DAILY for supplement, (Reported) Entered as Reported by: FRANCOIS SMITH on 10/18/13932 Last Action: Reviewed on 12/24/181936 by MARTITA BOLAND Simvastatin (Simvastatin) 20 Mg Tablet, 20 MG PO DAILY for HLD, (Reported) Entered as Reported by: FRANCOIS SMITH on 10/18/13932 Last Action: Reviewed on 12/24/181936 by MARTITA BOLAND Valsartan/Hydrochlorothiazide (Diovan Hct 320-25 Mg Tablet) 1 Each Tablet, 1 EACH PO DAILY for HTN, (Reported) Entered as Reported by: FRANCOIS SMITH on 10/18/13932 Last Action: Reviewed on 12/24/181936 by MARTITA BOLAND Scheduled PRN Hydrocodone Bit/Acetaminophen (Hydrocodone-Apap 5-325 ) 1 Each Tablet, 1 TAB PO PRN Q4HRS PRN for PAIN, (Reported) Entered as Reported by: COLIN DUBOIS on 06/16/18 1333 Last Action: Continued on 12/24/182221 by RERE ECHOLS Ibuprofen (Ibuprofen) 200 Mg Tablet, 200 MG PO for MILD PAIN, (Reported) Entered as Reported by: FRANCOIS SMITH on 10/18/13 0921 Last Action: Converted on 12/24/182221 by RERE ECHOLS Ondansetron Hcl (Zofran) 8 Mg Tablet, 8 MG PO BID PRN for NAUSEA/VOMITING, ( Reported) Entered as Reported by: COLIN DUBOIS on 10/22/18 1345 Last Action: Reviewed on 12/24/181936 by ELENA CENTENO MD Dec 28, 2018 11:44
--- NOTE | 2018-12-28 12:24 | PDOC ---
PROGRESS NOTES Subjective Subjective HPI - f/u of Met renal cell cancer ROS- no CP Objective Objective Vital Signs Date Time Temp Pulse Resp B/P (MAP) Pulse Ox O2 Delivery O2 Flow Rate FiO2 12/28/18 10:47 98.0 78 18 126/62 (83) 98 Room Air 98.0 Intake and Output 12/28/18 06:59 Intake Total 1260 ml Output Total 600 ml Balance 660 ml Intake Oral 1160 ml IV Total 100 ml Output Urine Total 600 ml # Voids 7 # Bowel Movements 2 Physical Exam Heart: Normal S1, Normal S2 General: Alert, Oriented X3 Lungs: Clear to auscultation Neuro: Normal speech Psych/Mental Status: Mental status NL Assessment Assessment Problems Medical Problems: (1) Hypoglycemia Status: Acute Imp/Plan: 1. Met renal cell cancer - on pazopanib 600mg since Aug 2018 and seems to tolerate well. Ok to resume. 2. Bone mets. Recent shoulder tendonitis and recent outpt films negative but before fall, will defer to primary any further eval. She has some other outpt eval pending as well. 3. symptomatic hypoglycemia. Management per primary. Comment Review of Relevant I have reviewed the following items tanya (where applicable) has been applied. Labs Laboratory Tests Test 12/26/18 16:38 12/26/18 20:30 12/27/18 03:35 12/27/18 07:30 Glucose (Fingerstick) 160 mg/dL (70-99) 153 mg/dL (70-99) 97 mg/dL (70-99) White Blood Count 4.3 x10^3/uL (4.0-11.0) Red Blood Count 3.35 x10^6/uL (3.50-5.40) Hemoglobin 11.0 g/dL (12.0-15.5) Hematocrit 32.9 % (36.0-47.0) Mean Corpuscular Volume 98 fL (79-100) Mean Corpuscular Hemoglobin 33 pg (25-35) Mean Corpuscular Hemoglobin Concent 33 g/dL (31-37) Red Cell Distribution Width 19.8 % (11.5-14.5) Platelet Count 145 x10^3/uL (140-400) Neutrophils (%) (Auto) 79 % (31-73) Lymphocytes (%) (Auto) 13 % (24-48) Monocytes (%) (Auto) 7 % (0-9) Eosinophils (%) (Auto) 1 % (0-3) Basophils (%) (Auto) 0 % (0-3) Neutrophils # (Auto) 3.4 x10^3uL (1.8-7.7) Lymphocytes # (Auto) 0.6 x10^3/uL (1.0-4.8) Monocytes # (Auto) 0.3 x10^3/uL (0.0-1.1) Eosinophils # (Auto) 0.1 x10^3/uL (0.0-0.7) Basophils # (Auto) 0.0 x10^3/uL (0.0-0.2) Sodium Level 141 mmol/L (136-145) Potassium Level 3.9 mmol/L (3.5-5.1) Chloride Level 104 mmol/L (98-107) Carbon Dioxide Level 29 mmol/L (21-32) Anion Gap 8 (6-14) Blood Urea Nitrogen 22 mg/dL (7-20) Creatinine 0.7 mg/dL (0.6-1.0) Estimated GFR (Cockcroft-Gault) 84.2 BUN/Creatinine Ratio 31 (6-20) Glucose Level 119 mg/dL (70-99) Calcium Level 8.5 mg/dL (8.5-10.1) Total Bilirubin 0.4 mg/dL (0.2-1.0) Aspartate Amino Transf (AST/SGOT) 17 U/L (15-37) Alanine Aminotransferase (ALT/SGPT) 18 U/L (14-59) Alkaline Phosphatase 43 U/L (46-116) Total Protein 6.0 g/dL (6.4-8.2) Albumin 2.4 g/dL (3.4-5.0) Albumin/Globulin Ratio 0.7 (1.0-1.7) Test 12/27/18 10:50 12/27/18 16:28 12/27/18 20:03 12/28/18 03:05 Glucose (Fingerstick) 143 mg/dL (70-99) 123 mg/dL (70-99) 143 mg/dL (70-99) Sodium Level 144 mmol/L (136-145) Potassium Level 3.5 mmol/L (3.5-5.1) Chloride Level 105 mmol/L (98-107) Carbon Dioxide Level 30 mmol/L (21-32) Anion Gap 9 (6-14) Blood Urea Nitrogen 29 mg/dL (7-20) Creatinine 0.8 mg/dL (0.6-1.0) Estimated GFR (Cockcroft-Gault) 72.2 Glucose Level 119 mg/dL (70-99) Calcium Level 8.7 mg/dL (8.5-10.1) Test 12/28/18 07:09 12/28/18 11:27 Glucose (Fingerstick) 108 mg/dL (70-99) 108 mg/dL (70-99) Laboratory Tests Test 12/27/18 16:28 12/27/18 20:03 12/28/18 03:05 12/28/18 07:09 Glucose (Fingerstick) 123 mg/dL (70-99) 143 mg/dL (70-99) 108 mg/dL (70-99) Sodium Level 144 mmol/L (136-145) Potassium Level 3.5 mmol/L (3.5-5.1) Chloride Level 105 mmol/L (98-107) Carbon Dioxide Level 30 mmol/L (21-32) Anion Gap 9 (6-14) Blood Urea Nitrogen 29 mg/dL (7-20) Creatinine 0.8 mg/dL (0.6-1.0) Estimated GFR (Cockcroft-Gault) 72.2 Glucose Level 119 mg/dL (70-99) Calcium Level 8.7 mg/dL (8.5-10.1) Test 12/28/18 11:27 Glucose (Fingerstick) 108 mg/dL (70-99) Microbiology 12/24/18 Urine Culture - Final, Complete 12/24/18 Urine Culture Result 1 (LION) - Final, Complete 12/24/18 Antimicrobic Susceptibility - Final, Complete Medications Current Medications Dextrose (Dextrose 50%-Water Syringe) 25 gm STK-MED ONCE IV ; Start 12/24/18 at 19:11; Stop 12/24/18 at 19:12; Status DC Dextrose (Dextrose 50%-Water Syringe) 25 gm 1X ONCE IV Last administered on at 19:18; Start 12/24/18 at 19:15; Stop 12/24/18 at 19:16; Status DC Dextrose/Sodium Chloride 1,000 ml @ 75 mls/hr 1X ONCE IV Last administered on 12/24/18at 19:15; Start 12/24/18 at 19:15; Stop 12/25/18 at 08:34; Status DC Ceftriaxone Sodium (Rocephin) 1 gm 1X ONCE IVP Last administered on 12/24/18at 19:48; Start 12/24/18 at 19:30; Stop 12/24/18 at 19:31; Status DC Ondansetron HCl (Zofran) 4 mg PRN Q8HRS PRN IV NAUSEA/VOMITING; Start 12/24/18 at 20:15; Stop 12/25/18 at 20:14; Status DC Acetaminophen/ Hydrocodone Bitart (Lortab 5/325) 1 tab PRN Q4HRS PRN PO MODERATE PAIN/SEVERE PAIN Last administered on 12/27/18at 20:23; Start 12/24/18 at 22:30 Ibuprofen (Motrin) 200 mg PRN Q6HRS PRN PO INFLAMMATION Last administered on at 09:25; Start 12/24/18 at 22:30; Stop 12/27/18 at 10:39; Status DC Nystatin (Nystop) 1 enid BID TP Last administered on 12/26/18at 09:21; Start at 22:30; Stop 12/26/18 at 10:37; Status DC Dextrose (Dextrose 50%-Water Syringe) 25 gm 1X ONCE IV Last administered on at 22:52; Start 12/24/18 at 23:00; Stop 12/24/18 at 23:01; Status DC Dextrose (Dextrose 50%-Water Syringe) 12.5 gm PRN Q15MIN PRN IV SEE COMMENTS Last administered on 12/25/18at 03:55; Start 12/24/18 at 23:00; Stop 12/25/18 at 17:09; Status DC Dextrose (Dextrose 50%-Water Syringe) 12.5 gm PRN Q15MIN PRN IV SEE COMMENTS; Start 12/25/18 at 11:15 Levofloxacin/ Dextrose 100 ml @ 100 mls/hr Q24H IV Last administered on at 11:29; Start 12/25/18 at 12:00 Ondansetron HCl (Zofran) 4 mg PRN Q6HRS PRN IV NAUSEA/VOMITING; Start 12/26/18 at 09:00 Ondansetron HCl (Zofran Odt) 4 mg PRN Q6HRS PRN PO NAUSEA/VOMITING Last administered on 12/28/18at 10:11; Start 12/26/18 at 09:00 Acetaminophen (Tylenol) 500 mg PRN Q6HRS PRN PO MILD PAIN / TEMP; Start at 09:00 Nystatin (Nystop) 1 enid TID TP Last administered on 12/27/18at 20:24; Start at 14:00 Vitamin A/Vitamin D (Vitamin A & D Ointment) 1 enid PRN Q1HR PRN TP SKIN PROTECTION; Start 12/26/18 at 10:45 Furosemide (Lasix) 40 mg 1X ONCE IVP Last administered on 12/26/18 12:30; Start 12/26/18 at 11:30; Stop 12/26/18 at 11:31; Status DC Furosemide (Lasix) 40 mg DAILY IVP Last administered on 12/27/18at 08:55; Start 12/27/18 at 09:00; Stop 12/27/18 at 10:34; Status DC Methylprednisolone Acetate (DEPO-Medrol 40MG VIAL) 40 mg 1X ONCE IM ; Start at 13:00; Stop 12/26/18 at 13:01; Status DC Methylprednisolone Acetate (DEPO-Medrol 40MG VIAL) 40 mg 1X ONCE IM ; Start at 13:00; Stop 12/26/18 at 13:01; Status DC Bupivacaine HCl (Sensorcaine-Mpf 0.25%) 10 ml 1X ONCE IJ ; Start 12/26/18 at 13 :00; Stop 12/26/18 at 13:01; Status DC Diclofenac Sodium (Voltaren) 1 enid BID TP Last administered on 12/27/18 20:25 ; Start 12/26/18 at 21:00 Non-Formulary Medication 3 ea DAILY07 PO Last administered on 12/28/18at 10:30; Start 12/28/18 at 07:00 Furosemide (Lasix) 40 mg BID IVP Last administered on 12/28/18at 08:46; Start at 21:00 Naproxen (Naprosyn) 500 mg BID PO Last administered on 12/28/18at 08:45; Start 12/27/18 at 11:00 Bupivacaine HCl (Sensorcaine-Mpf 0.25%) 10 ml STK-MED ONCE .ROUTE ; Start at 11:00; Stop 12/28/18 at 10:46; Status DC Methylprednisolone Acetate (DEPO-Medrol 40MG VIAL) 40 mg STK-MED ONCE .ROUTE ; Start 12/26/18 at 11:00; Stop 12/28/18 at 10:46; Status DC Methylprednisolone Acetate (DEPO-Medrol 40MG VIAL) 40 mg STK-MED ONCE .ROUTE ; Start 12/26/18 at 11:00; Stop 12/28/18 at 10:46; Status DC Active Scripts Active Levaquin (Levofloxacin) 500 Mg Tablet 1 Tab PO DAILY Lasix (Furosemide) 40 Mg Tablet 40 Mg PO DAILY Lasix (Furosemide) 40 Mg Tablet 40 Mg PO BID Naprosyn (Naproxen) 500 Mg Tablet 500 Mg PO BID MDD 1 Voltaren (Diclofenac Sodium) 100 Gm Gel..gram. 1 [place] TP BID MDD 1 7 Days Reported Nystatin 15 Gm Powder 1 [place] TP BID Zofran (Ondansetron Hcl) 8 Mg Tablet 8 Mg PO BID PRN Xgeva (Denosumab) 120 Mg/1.7 Ml Vial 120 Mg SQ MONTHLY Votrient (Pazopanib Hcl) 200 Mg Tablet 200 Mg PO TID Hydrocodone-Apap 5-325 (Hydrocodone Bit/Acetaminophen) 1 Each Tablet 1 Tab PO PRN Q4HRS PRN Farxiga (Dapagliflozin Propanediol) 10 Mg Tablet 10 Mg PO DAILY Glimepiride 2 Mg Tablet 1 Tab PO DAILY Ibuprofen 200 Mg Tablet 200 Mg PO PRN Simvastatin 20 Mg Tablet 20 Mg PO DAILY Klor-Con M20 (Potassium Chloride) 20 Meq Tab.er.prt 20 Meq PO DAILY Lasix (Furosemide) 20 Mg Tablet 20 Mg PO DAILY Diovan Hct 320-25 Mg Tablet (Valsartan/Hydrochlorothiazide) 1 Each Tablet 1 Each PO DAILY Vitals/I & O Vital Sign - Last 24 Hours 12/27/18 12/27/18 12/27/18 12/27/18 15:00 19:00 19:41 20:23 Temp 98.2 97.6 98.2 97.6 Pulse 77 67 Resp 20 20 18 B/P (MAP) 136/76 (96) 130/64 (86) Pulse Ox 96 98 98 O2 Delivery Room Air Room Air Room Air Room Air 12/27/18 12/27/18 12/28/18 12/28/18 21:25 23:00 03:01 07:00 Temp 97.9 97.7 98.2 97.9 97.7 98.2 Pulse 81 65 66 Resp 18 20 20 18 B/P (MAP) 131/68 (89) 127/65 (85) 103/70 (81) Pulse Ox 98 96 97 96 O2 Delivery Room Air Room Air Room Air Room Air 12/28/18 12/28/18 08:00 10:47 Temp 98.0 98.0 Pulse 78 Resp 18 B/P (MAP) 126/62 (83) Pulse Ox 98 O2 Delivery Room Air Room Air Intake and Output 12/27/18 12/27/18 12/28/18 14:59 22:59 06:59 Intake Total 550 ml 710 ml Output Total 600 ml Balance 550 ml 710 ml -600 ml ANUJ SCHAFFER MD Dec 28, 2018 12:24
--- NOTE | 2018-12-28 12:58 | NUR ---
YURI following pt. Pt has been accepted at [facility] pending insurance approval. Insurance auth pending. SW discussed with pt she will need to bring her Chemo medication if she goes to [facility]. Pt verbalized understanding. Will continue to follow.
[2018-12-28] MEDS: NYSTATIN TOPICAL POWDER 15GM BOTTLE. TP SCH (14:17)
[2018-12-28 14:59] VITALS: BP 111/69
--- NOTE | 2018-12-28 15:47 | NUR ---
SW following. Notified by CM, insurance has approved SNU. Faxed orders to [facility]. Awaiting to hear from Samara at [facility] if they are able to take pt today.
--- NOTE | 2018-12-28 16:29 | NUR ---
SW following. Pt will transport to [facility] via [facility] arranged w/c van at 1800. Packet on chart. Pt aware of plan and agreeable. RN notified.
--- NOTE | 2018-12-28 16:51 | NUR ---
Report to Shiela SARAVIA at [facility]. See nursing communication, patient verb. understanding POC.
--- NOTE | 2018-12-28 18:37 | NUR ---
Patient discharge to [facility] per wheelchair van with all belongings, copied chart with prescriptions in discharge envelope with orders and patient home medication sent with patient. See previous note, report called to RN at [facility] and orders.
[2018-12-29] MEDS ORDERED: FUROSEMIDE 40 MG/4 ML VIAL. IVP SCH (09:00)
== END 2018-12-28 18:39 | DRG 638 ==
LOC: ER 16:52 → 5 NORTH 20:18
PROVIDERS: ADMIT Family Medicine; ATTEND Family Medicine
DX: E11.649 Type 2 diabetes mellitus with hypoglycemia without coma (principal); C64.9 Malignant neoplasm of unspecified kidney, except renal pelvis; C78.00 Secondary malignant neoplasm of unspecified lung; C79.51 Secondary malignant neoplasm of bone; N39.0 Urinary tract infection, site not specified; Z68.43 Body mass index [BMI] 50.0-59.9, adult; R53.2 Functional quadriplegia; E11.42 Type 2 diabetes mellitus with diabetic polyneuropathy; E66.01 Morbid (severe) obesity due to excess calories; E78.5 Hyperlipidemia, unspecified; G56.02 Carpal tunnel syndrome, left upper limb; I10 Essential (primary) hypertension; I87.2 Venous insufficiency (chronic) (peripheral); I89.0 Lymphedema, not elsewhere classified; M21.161 Varus deformity, not elsewhere classified, right knee; T38.3X5A Adverse effect of insulin and oral hypoglycemic [antidiabetic] drugs, initial encounter; M21.162 Varus deformity, not elsewhere classified, left knee; M47.9 Spondylosis, unspecified; M50.30 Other cervical disc degeneration, unspecified cervical region; M75.91 Shoulder lesion, unspecified, right shoulder; M77.9 Enthesopathy, unspecified; Z79.84 Long term (current) use of oral hypoglycemic drugs; Z79.899 Other long term (current) drug therapy; Z80.3 Family history of malignant neoplasm of breast; Z80.42 Family history of malignant neoplasm of prostate; Z82.3 Family history of stroke; Z82.49 Family history of ischemic heart disease and other diseases of the circulatory system; Z85.528 Personal history of other malignant neoplasm of kidney; Z83.3 Family history of diabetes mellitus; Z79.4 Long term (current) use of insulin; Y92.89 Other specified places as the place of occurrence of the external cause; L89.301 Pressure ulcer of unspecified buttock, stage 1
CPT/HCPCS: 36415; 70450; 70486; 72125; 73565; 80048; 80053; 80076; 81001; 82962; 83690; 84484; 85007; 85025; 87086; 87186; 93005; 96361; 96374; 96375; J0696; J1030; J1940; J1956; J3490; J7042; Q0162; 97110; 97116; 97530; 97535; 99285-25

== ENCOUNTER 2020-04-05 09:22 | Emergency (ER) | payer BC ==
[~2020-04-05] VITALS: Ht 152.4 cm; Wt 111.0 kg
[~2020-04-05 09:22] MED LIST changes: +CYAN-25 PO; -CYAN10005 PO; +DICL100G54 TP; +FURO-68 PO; -GLIM2TAB2 PO; +GLIM2TAB7 PO; +LEVO500T59 PO; +NAPR-683 PO; +NYST15PO9 TP; +PAZO200T; -PAZO200T PO; +SIMV20TA18 PO; -SIMV20TA3 PO
--- NOTE | 2020-04-05 09:54 | PHYS DOC ---
Past Medical History Past Medical History: Diabetes-Type II, Other Additional Past Medical Histor: kidney ca with mets to bone Past Surgical History: Other Additional Past Surgical Histo: lt knee, rt shoulder Smoking Status: Never Smoker Alcohol Use: None Drug Use: None General Adult EDM: Chief Complaint: ABNORMAL LABS HPI: HPI: 64-year-old female past medical history significant for stage IV renal cancer with mets to the bone and lung, diabetes, PE on Eliquis, hypertension, hyperlipidemia, presents to the ED from [facility] living facility for abnormal blood work, hemoglobin of 6. Is currently on immunotherapy, discontinued oral chemotherapy September 2019. Was diagnosed in June 2018. Has no active complaints. Has had prior blood transfusions, cannot recall most recent transfusion. Is wheelchair bound, no ambulation. Denies any falls or head trauma. ROS: Denies associated fever, chills, rash, cough, sore throat, nausea, vomiting, chest pain or pressure, dyspnea on exertion, abdominal pain, hemoptysis, melena, hematochezia, hematemesis, hematuria, diaphoresis, leg swelling, neurologic deficits. pmd-Aiyana Silveira DNR code status Review of Systems: Review of Systems: Constitutional: Denies fever or chills. [] Eyes: Denies change in visual acuity. [] HENT: Denies nasal congestion or sore throat. [] Respiratory: Denies cough or shortness of breath. [] Cardiovascular: Denies chest pain or edema. [] GI: Denies abdominal pain, nausea, vomiting, bloody stools or diarrhea. [] : Denies dysuria. [] Musculoskeletal: Denies back pain or joint pain. [] Integument: Denies rash. [] Neurologic: Denies headache, focal weakness or sensory changes. [] Endocrine: Denies polyuria or polydipsia. [] Lymphatic: Denies swollen glands. [] Psychiatric: Denies depression or anxiety. [] Allergies: Allergies: Allergies Coded Allergies Type Severity Reaction Last Updated Verified glimepiride Allergy Intermediate Shortness of Air 12/03/19 Yes metformin Allergy Intermediate Nausea and Vomiting 12/03/19 Yes pioglitazone Adverse Reaction Intermediate Swelling 12/03/19 Yes Physical Exam: PE: Constitutional: Well developed, well nourished, no acute distress, non-toxic appearance. [] HENT: Normocephalic, atraumatic, bilateral external ears normal, oropharynx dry- hasn't has breakfast, no oral exudates, nose normal. [] Eyes: EOMI, conjunctiva normal, no discharge. [] Neck: Normal range of motion, no tenderness, supple, no stridor. [] Cardiovascular:Heart rate regular rhythm, no murmur [] Lungs & Thorax: Bilateral breath sounds clear to auscultation [] Abdomen: Bowel sounds normal, soft, no tenderness, no masses, no pulsatile masses. [] Obese abdomen with fluid wave Skin: Warm, dry, no erythema, no rash. [] Back: No tenderness, no CVA tenderness. [] Extremities: No tenderness, no cyanosis, no clubbing, ROM intact, significant bl equal +4 edema. [] Neurologic: Alert and oriented X 3, normal motor function, normal sensory function, no focal deficits noted. [] Psychologic: Affect normal, judgement normal, mood normal. [] : no ulcers, some early sacral skin breakdown, only had a cup of apple juice to drink today, concentrated yellow urine, no hematuria Current Patient Data: Vital Signs: Vital Signs Date Time Temp Pulse Resp B/P (MAP) Pulse Ox O2 Delivery O2 Flow Rate FiO2 04/05/20 09:25 98.2 83 20 115/62 (79) 98 Room Air 98.2 EKG: EKG: [] Radiology/Procedures: Radiology/Procedures: IMAGING REPORT Signed PATIENT: DRU GONZALEZ ACCOUNT: [id number] : 1955 LOCATION: ER AGE: 64 SEX: F EXAM STATUS: REG ER ORD. PHYSICIAN: RAMÓN SAHU DO REASON: anemia PROCEDURE: CHEST AP ONLY Examination: CHEST AP ONLY History: Reason: anemia / Spl. Instructions: / History: Comparison: 06/18/[address] chest with contrast. Findings: AP portable upright frontal view of the chest was obtained. The cardiomediastinal silhouette is enlarged but stable. Lungs are clear. There is no pneumothorax. No pleural effusion is appreciated. No acute bone abnormality. IMPRESSION: No acute cardiopulmonary process. Electronically signed by: Amanuel Castillo MD (04/05/2020 10:29 AM) [id number] DICTATED and SIGNED BY: AMANUEL CASTILLO MD DATE: 04/05/20 1029 Impression: Concern for asymptomatic anemia in the absence of any blood loss. Hemoglobin 7.2. Patient reports her hemoglobin was 7.52 weeks ago. No signs of blood loss. Patient reports she has not urinated since last night although has not had more than 1 cup of fluids today-voided in ED. no suprapubic fullness and does not have the urge to urinate. No indication for transfusion-has no shortness of breath. Will discharge home with strict ED return precautions for syncope, and difficulties breathing or signs of blood loss. Encouraged urgent PMD follow-up. All of her questions were answered and she was stable at time of discharge. Course & Med Decision Making: Course & Med Decision Making Pertinent Labs and Imaging studies reviewed. (See chart for details) [] Dragon Disclaimer: Dragon Disclaimer: This electronic medical record was generated, in whole or in part, using a voice recognition dictation system. Departure Departure Impression: Primary Impression: Microcytic anemia Additional Impressions: Encounter for laboratory test UTI (urinary tract infection) Disposition: HOME, SELF-CARE Condition: STABLE Referrals: SHARITA PINTO DO (PCP) Patient Instructions: Iron Deficiency Anemia, Urinary Tract Infection Justicifation of Admission Dx: Justifications for Admission: Justification of Admission Dx: N/A RAMÓN SAHU DO Apr 05, 2020 09:54
[2020-04-05 10:03] LABS: CALCIUM 9.4 mg/dL (8.5-10.1); GFR 55.6; POTASSIUM 4.1 mmol/L (3.5-5.1)
[2020-04-05 10:05] LABS: BASO % 1 % (0-3); EOS # 0.1 x10^3/uL (0.0-0.7); EOS % 2 % (0-3); HEMATOCRIT 23.4 % (36.0-47.0); HEMOGLOBIN 7.2 g/dL (12.0-15.5); LYMPH # 0.5 x10^3/uL (1.0-4.8); LYMPH % 10 % (24-48); MEAN CORPUSCULAR HEMOGLOBIN 23 pg (25-35); MEAN CORPUSCULAR HGB CONC 31 g/dL (31-37); MEAN CORPUSCULAR VOLUME 73 fL (79-100); MONO # 0.4 x10^3/uL (0.0-1.1); MONO % 7 % (0-9); NEUT # 4.5 x10^3/uL (1.8-7.7); NEUT % 81 % (31-73); PLATELET COUNT 338 x10^3/uL (140-400); RED CELL DISTRIBUTION WIDTH 21.3 % (11.5-14.5); WHITE BLOOD COUNT 5.6 x10^3/uL (4.0-11.0)
[2020-04-05 10:09] LABS: ALBUMIN 2.4 g/dL (3.4-5.0); ALBUMIN/GLOBULIN RATIO 0.5 (1.0-1.7); TOTAL BILIRUBIN 0.4 mg/dL (0.2-1.0)
--- NOTE | 2020-04-05 10:31 | RAD ---
Examination: CHEST AP ONLY History: Reason: anemia / Spl. Instructions: / History: Comparison: 06/18/[address] chest with contrast. Findings: AP portable upright frontal view of the chest was obtained. The cardiomediastinal silhouette is enlarged but stable. Lungs are clear. There is no pneumothorax. No pleural effusion is appreciated. No acute bone abnormality. IMPRESSION: No acute cardiopulmonary process. Electronically signed by: Amanuel Rene MD (04/05/2020 10:29 AM) [id number]
[2020-04-05 11:00] VITALS: BP 108/60
[2020-04-05 11:02] LABS: ANISOCYTOSIS PRESENT; HYPOCHROMIA PRESENT; MICROCYTOSIS PRESENT; POLYCHROMASIA PRESENT
[2020-04-05 11:09] LABS: PLT ESTIMATE ADEQUATE (ADEQUATE)
[2020-04-05 12:43] LABS: BILIRUBIN,URINE SMALL (NEG); CLARITY,URINE CLOUDY; NITRITE,URINE NEGATIVE (NEG); PH,URINE 5.5 (<5.0-8.0); PROTEIN,URINE 100 mg/dL (NEG-TRACE)
[2020-04-05 12:48] LABS: COLOR,URINE YELLOW
[2020-04-05 12:50] LABS: HYALINE CASTS, URINE MANY /HPF; SQUAMOUS EPITHELIAL CELL,UR MANY /LPF
[2020-04-05 12:51] LABS: AMORPHOUS SEDIMENT,UR PRESENT /HPF; BACTERIA,URINE FEW /HPF (0-FEW); RBC,URINE 0 /HPF (0-2); WBC,URINE >40 /HPF (0-4)
[2020-04-05] MEDS ORDERED: FOSFOMYCIN TROMETHAMINE 3 GM PACKET PO ONE (13:00)
== END 2020-04-05 13:38 | disposition home or self-care (01) ==
LOC: ER 09:22
DX: N39.0 Urinary tract infection, site not specified (principal); D50.9 Iron deficiency anemia, unspecified; E11.9 Type 2 diabetes mellitus without complications; Z98.890 Other specified postprocedural states; Z88.8 Allergy status to other drugs, medicaments and biological substances; Z85.528 Personal history of other malignant neoplasm of kidney
CPT/HCPCS: 36415; 71045; 80053; 81001; 85025; 85610; 85730; 86850; 86900; 86901; 87086; 99284